=== PATIENT | female | born 1930 | race Hispanic/Latino ===

== ENCOUNTER 2017-10-26 14:59 | Inpatient (IN) | payer MEDICARE ==
[2017-10-26 15:55] LABS: Basophils % (Auto) 0.2 % (0.0-1.8); Eosinophils % (Auto) 0.1 % (0.0-4.3); Hematocrit 40.5 % (30.3-42.9); Hemoglobin 13.5 gm/dl (10.1-14.3); Lymphocytes # (Auto) 0.6 K/mm3 (1.2-5.4); Lymphocytes % (Auto) 6.7 % (13.4-35.0); Mean Corpuscular HGB Conc 33 % (30-34); Mean Corpuscular Hemoglobin 31 pg (28-32); Mean Corpuscular Volume 93 fl (79-97); Monocytes # (Auto) 0.4 K/mm3 (0.0-0.8); Monocytes % (Auto) 4.7 % (0.0-7.3); Red Blood Count 4.36 M/mm3 (3.65-5.03); Red Cell Distribution Width 14.7 % (13.2-15.2)
[2017-10-26 15:57] LABS: Platelet Count 85 K/mm3 (140-440)
[2017-10-26 16:05] LABS: INR 1.88 (0.87-1.13)
[2017-10-26 16:18] LABS: Albumin 3.8 g/dL (3.9-5); Calcium 8.9 mg/dL (8.4-10.2)
[2017-10-26 17:01] LABS: Bilirubin,Urine NEG (Negative); Blood,Urine SM (Negative); Color,Urine Straw (Yellow); Mucus,Urine FEW /HPF; Nitrite,Urine NEG (Negative); Protein,Urine <15 mg/dL mg/dL (Negative); Urobilinogen,Urine < 2.0 mg/dL (<2.0)
[2017-10-26 17:06] LABS: Amphetamine Screen,Urine PRESUMPTIVE NEGATIVE; Benzodiazepines Screen,Urine PRESUMPTIVE NEGATIVE; Cannabinoid Screen,Urine PRESUMPTIVE NEGATIVE; Cocaine Screen,Urine PRESUMPTIVE NEGATIVE; Methadone Screen,Urine PRESUMPTIVE NEGATIVE; Opiate Screen,Urine PRESUMPTIVE NEGATIVE
[2017-10-26] MEDS ORDERED: ZOFRAN IV ONE (20:39)
[2017-10-26] MEDS ORDERED: K-DUR PO ONE (20:39)
--- NOTE | 2017-10-26 20:40 | Emergency Department Report ---
ED Syncope HPI - General Chief Complaint: Syncope Stated Complaint: SYNCOPE Time Seen by Provider: 10/26/17 20:22 Source: patient - History of Present Illness Initial Comments: 86 YO FEMALE WITH 3 EPISODES OF SYNCOPE TODAY AND ONE LAST WEEK. PT WAS ALSO CONFUSED AND DISORIENTED SEVERAL TIMES TODAY. SHE HAS ALSO C/O CHEST PAIN. Timing/Prior Episodes: multiple episodes today Precipitating Factors: Positive: unknown Context: standing Loss of Consciousness: brief (seconds) Current Symptoms: back to normal - Related Data Allergies/Adverse Reactions: Allergies morphine Allergy (Verified 10/26/17 15:09) Unknown Home Medications: Ambulatory Orders AtorvaSTATin [Lipitor] 10 mg PO QHS 10/27/17 Furosemide [Lasix TAB] 40 mg PO QDAY 10/27/17 Metoprolol [Lopressor] 25 mg PO BID 10/27/17 Warfarin [Coumadin] 5 mg PO QDAY 10/27/17 ED Review of Systems ROS: Stated complaint: SYNCOPE Other details as noted in HPI Constitutional: denies: chills, fever Eyes: denies: eye pain, eye discharge, vision change ENT: denies: ear pain, throat pain Respiratory: denies: cough, shortness of breath, wheezing Cardiovascular: chest pain. denies: palpitations Endocrine: no symptoms reported Gastrointestinal: denies: abdominal pain, nausea, diarrhea Genitourinary: denies: urgency, dysuria, discharge Musculoskeletal: denies: back pain, joint swelling, arthralgia Skin: denies: rash, lesions Neurological: weakness, confusion. denies: headache, paresthesias Psychiatric: denies: anxiety, depression Hematological/Lymphatic: denies: easy bleeding, easy bruising ED Past Medical Hx - Past Medical History Previous Medical History?: Yes Hx Congestive Heart Failure: Yes Hx Dementia: Yes - Surgical History Past Surgical History?: Yes - Social History Smoking Status: Never Smoker Substance Use Type: Prescribed - Medications Home Medications: Home Medications Medication Instructions Recorded Confirmed Last Taken Type AtorvaSTATin [Lipitor] 10 mg PO QHS 10/27/17 10/27/17 Unknown History Furosemide [Lasix TAB] 40 mg PO QDAY 10/27/17 10/27/17 Unknown History Metoprolol [Lopressor] 25 mg PO BID 10/27/17 10/27/17 Unknown History Warfarin [Coumadin] 5 mg PO QDAY 10/27/17 10/27/17 Unknown History ED Physical Exam - General Limitations: Physical Limitation, Other General appearance: alert, in no apparent distress - Head Head exam: Present: atraumatic, normocephalic - Eye Eye exam: Present: normal appearance, EOMI - ENT ENT exam: Present: mucous membranes moist - Neck Neck exam: Present: normal inspection, full ROM - Respiratory Respiratory exam: Present: normal lung sounds bilaterally, decreased breath sounds. Absent: wheezes - Cardiovascular Cardiovascular Exam: Present: regular rate, irregular rhythm. Absent: systolic murmur, diastolic murmur, rubs, gallop - GI/Abdominal GI/Abdominal exam: Present: soft, normal bowel sounds. Absent: tenderness - Rectal Rectal exam: Present: deferred - Extremities Exam Extremities exam: Present: full ROM, pedal edema (4+ PITTING EDEMA) - Back Exam Back exam: Present: normal inspection - Neurological Exam Neurological exam: Present: alert, oriented X3 - Psychiatric Psychiatric exam: Present: normal affect, normal mood - Skin Skin exam: Present: warm, dry, intact, normal color. Absent: rash ED Course Vital Signs 10/26/17 10/26/17 10/26/17 15:09 19:45 20:44 Temperature 97 F L 97.3 F L Pulse Rate 73 82 Respiratory 18 20 16 Rate Blood Pressure 117/69 Blood Pressure 151/76 [Right] O2 Sat by Pulse 95 97 97 Oximetry 10/27/17 01:45 Temperature Pulse Rate 146 H Respiratory Rate Blood Pressure 148/84 Blood Pressure [Right] O2 Sat by Pulse Oximetry - Reevaluation(s) Reevaluation #1: 10/26/17 22:19 DISCUSSED FINDINGS THUS FAR WITH THE FAMILY 10/27/17 02:41 PT IS NOT HAVING A-FIB WITH RVR WILL START A DRIP ED Medical Decision Making - Lab Data Result diagrams: 10/26/17 15:28 10/26/17 15:28 - EKG Data -: EKG Interpreted by [facility] EKG shows normal: axis Rate: normal (89, A-FIB,LOW VOLTAGE INPRECORDIAL LEADS,Q IN V1-V2.LONG QT) - Radiology Data Radiology results: report reviewed (CXR: NEGATIVE CT HEAD; NO ACUTE ISCHEMIC CHANGES CTA CHEST:NEGATIVE FOR PE, NO DISSECTION, CT LOWER EXTREMITY: NEGATIVE FOR PE, LARGE EDEMA) Critical Care Time: Yes Critical care time in (mins) excluding proc time.: 60 Critical care attestation.: If time is entered above; I have spent that time in minutes in the direct care of this critically ill patient, excluding procedure time. NICOLE Critical Care Time: 60MIN ED Disposition Clinical Impression: New onset atrial fibrillation, Hypokalemia, Hyperglycemia, Syncope and collapse Acute CHF Qualifiers: Congestive heart failure type: unspecified congestive heart failure type Qualified Code(s): I50.9 - Heart failure, unspecified Chest pain Qualifiers: Chest pain type: chest pain due to myocardial ischemia Ischemic chest pain type : unspecified angina pectoris type Qualified Code(s): I20.9 - Angina pectoris, unspecified Disposition: 09 OP ADMIT IP TO THIS HOSP Is pt being admited?: Yes Does the pt Need Aspirin: No Condition: Critical Instructions: Chest Pain (ED), Syncope (ED) Referrals: JOSEFINA BROWN MD [Primary Care Provider] - 3-5 Days Time of Disposition: 02:50 (DR LOPEZ PAGED AN DCASE REVIEWED AND SHE WILL ADMT THE PT TO THE HOSPITAL)
--- NOTE | 2017-10-26 20:57 | XRay Report ---
FINAL REPORT EXAM: XR CHEST 1V AP HISTORY: sob TECHNIQUE: upright single view chest PRIORS: None. FINDINGS: Cardiac and mediastinal contours are unremarkable. No focal pulmonary infiltrate is identified. No pleural fluid collection seen. Pulmonary vasculature is unremarkable. Partially visualized is fusion hardware lower cervical spine IMPRESSION: Negative single-view chest
--- NOTE | 2017-10-26 21:45 | Cat Scan Report ---
FINAL REPORT PROCEDURE: CT HEAD/BRAIN W CON TECHNIQUE: Computerized tomography of the head was performed without contrast material. HISTORY: ams COMPARISON: No prior studies are available for comparison. FINDINGS: Skull and scalp: Normal. Paranasal sinuses: Normal. Ventricles and subarachnoid spaces: There is moderate central and cortical atrophy. There is no hydrocephalus or asymmetry.. Cerebrum: No evidence of hemorrhage, acute infarction or mass. There is chronic periventricular deep white matter ischemic gliosis. There are physiologic calcifications in the basal ganglia. Cerebellum and brainstem: No evidence of hemorrhage, acute infarction or mass. Vasculature: There is calcified plaque in the cavernous portions of the internal carotid arteries.. Comments: None. IMPRESSION: There are chronic involutional and ischemic changes. There is no hemorrhage, edema, mass, mass effect or midline shift.
--- NOTE | 2017-10-27 01:31 | Cat Scan Report ---
FINAL REPORT PROCEDURE: CT ANGIO CHEST TECHNIQUE: Computerized tomographic angiography of the chest was performed after the IV injection of iodinated nonionic contrast including image processing. The image data was postprocessed using 2-dimensional multiplanar reformatted (MPR) and 3-dimensional (MIP and/or volume rendered) techniques. HISTORY: SYNCOPE,CHEST PAIN,DDIMER > 10,000 COMPARISON: No prior studies are available for comparison. FINDINGS: Heart and pericardium: The heart is enlarged. There is no pericardial effusion.. Thoracic aorta: There is calcified plaque in the thoracic aorta. There is no aneurysm or dissection.. Pulmonary vasculature: There is no pulmonary embolism.. Lymph nodes: No enlarged thoracic lymph nodes. Lungs: The lungs are clear. There are no infiltrates, effusions or pneumothoraces.. Pleural space: No effusion, thickening, or pneumothorax. Musculoskeletal structures: No significant abnormality. Upper abdominal structures: Images of the upper abdomen demonstrate evidence of a cholecystectomy.. IMPRESSION: There is no pulmonary embolism. There is no thoracic aortic aneurysm or dissection.
[2017-10-27] MEDS ORDERED: NORMODYNE IV ONE (01:37)
--- NOTE | 2017-10-27 02:25 | Cat Scan Report ---
FINAL REPORT PROCEDURE: CT LOWER EXTREMITY LT W CON TECHNIQUE: Computerized axial tomographic angiography of the aortoiliac system with bilateral lower extremity runoff was performed after the IV injection of nonionic iodinated contrast including image processing. The image data was postprocessed using 2-dimensional multiplanar reformatted (MPR) and 3-dimensional (MIP and/or volume rendered) techniques. HISTORY: SYNCOPE,CHEST PAIN,DDIMER > 10,000 COMPARISON: No prior studies are available for comparison. FINDINGS: Abdominal aorta: Normal. Celiac artery: Normal. Superior mesenteric artery: Normal. LEFT renal artery: Normal. RIGHT renal artery: Normal. Inferior mesenteric artery: Normal. Common iliac arteries: Normal. External iliac arteries: Normal. RIGHT lower extremity: Femoral arteries: Normal. Popliteal arteries: Normal. Trifurcation vessels: Normal. LEFT lower extremity: Femoral arteries: Normal. Popliteal arteries: Normal. Trifurcation vessels: Normal. Abdominal and pelvic viscera: Normal. Other: There is subcutaneous edema and swelling of the lower extremities. There is no mass, abscess, hematoma, subcutaneous air or foreign body. There is hardware transfixing old fracture of the left hip. IMPRESSION: There is subcutaneous edema and swelling of the lower extremities. There is no mass, abscess, hematoma, subcutaneous air or foreign body. There is no acute bony abnormality. There is no arterial stenosis, thrombosis, or dissection.
[2017-10-27] MEDS ORDERED: CARDIZEM/D5W 100MG/100ML 100 MG/100 ML BAG IV SCH ×2 (03:00→05:00)
[2017-10-27] MEDS ORDERED: TYLENOL PO PRN (03:31)
[2017-10-27] MEDS ORDERED: MILK OF MAGNESIA PO PRN (03:31)
[2017-10-27] MEDS ORDERED: DULCOLAX PR PRN (03:31)
[2017-10-27] MEDS ORDERED: ZOFRAN IV PRN (03:31)
--- NOTE | 2017-10-27 03:36 | History and Physical Report ---
History of Present Illness Date of examination: 10/27/17 History of present illness: 87 year old man with history of afib, CHF, dementia comes to the emergency room with complaints of almost passing out per family. She had a total of 3 episodes yesterday, he also stated that she felt dizzy and disoriented. Patient is unable to give a history, review of system unobtainable PAST MEDICAL HISTORY:afib, CHF, dementia PAST SURGICAL HISTORY: Hip surgery, neck, eye implant FAMILY HISTORY:Hypertension SOCIAL HISTORY:Denies alcohol, tobacco, drugs Medications and Allergies Allergies Allergy/AdvReac Type Severity Reaction Status Date / Time morphine Allergy Unknown Verified 10/26/17 15:09 Home Medications Medication Instructions Recorded Confirmed Last Taken Type AtorvaSTATin [Lipitor] 10 mg PO QHS 10/27/17 10/27/17 Unknown History Furosemide [Lasix TAB] 40 mg PO QDAY 10/27/17 10/27/17 Unknown History Metoprolol [Lopressor TAB] 25 mg PO BID 10/27/17 10/27/17 Unknown History Warfarin [Coumadin] 5 mg PO QDAY 10/27/17 10/27/17 Unknown History Arformoterol Nebu [Brovana Nebu] 15 mcg IH Q12HRT ml 10/30/17 Unknown Rx Budesonide [Pulmicort Respules] 0.5 mg IH Q12HRT nebu 10/30/17 Unknown Rx Famotidine [Pepcid] 20 mg PO QDAY tablet 10/30/17 Unknown Rx Levofloxacin [Levaquin] 250 mg PO QDAY 5 Days tablet 10/30/17 Unknown Rx Metoprolol [Lopressor TAB] 25 mg PO BID tablet 10/30/17 Unknown Rx Active Meds: Active Medications Diltiazem HCl (Cardizem/D5w 100mg/100ml) 100 mg in 100 mls @ 5 mls/hr IV TITR MARK; 5 MG/HR PRN Reason: Protocol Exam - Physical Exam Narrative exam: Gen. appearance: Patient lying in bed in no acute distress HEENT: Normocephalic/atraumatic, pupils equal round reactive to light, extra occular movement intact, no scleral icterus, no JVD or thyromegaly or nodule, neck is supple, mucous membrane moist, no erythema or exudate Heart: S1-S2, irregular rate and rhythm Lungs: Clear to auscultation bilateral breathing comfortable Abdomen: Positive bowel sounds, nontender, nondistended, no organomegaly Extremities: No edema, cyanosis, clubbing Neuro:: cranial nerves II-12 intact, speech, motor intact Skin: No rash, nodules, warm dry - Constitutional Vitals: Temp Pulse Resp BP Pulse Ox 97.3 F L 146 H 16 148/84 97 10/26/17 19:45 10/27/17 01:45 10/26/17 20:44 10/27/17 01:45 10/26/17 20:44 Results - Labs CBC & Chem 7: 10/28/17 05:31 10/28/17 05:31 Labs: Abnormal lab results 10/26/17 10/26/17 10/26/17 Range/Units 15:28 15:28 15:37 Plt Count 85 L (140-440) K/mm3 Lymph % (Auto) 6.7 L (13.4-35.0) % Lymph # 0.6 L (1.2-5.4) K/mm3 Seg Neutrophils % 88.3 H (40.0-70.0) % Seg Neutrophils # 8.1 H (1.8-7.7) K/mm3 PT 22.7 H (12.2-14.9) Sec. INR 1.88 H (0.87-1.13) APTT 41.0 H (24.2-36.6) Sec. D-Dimer (0-234) ng/mlDDU Potassium 3.3 L (3.6-5.0) mmol/L Glucose 202 H (65-100) mg/dL Total Bilirubin 1.30 H (0.1-1.2) mg/dL NT-Pro-B Natriuret Pep (0-900) pg/mL Albumin 3.8 L (3.9-5) g/dL 10/26/17 10/26/17 Range/Units 15:37 15:37 Plt Count (140-440) K/mm3 Lymph % (Auto) (13.4-35.0) % Lymph # (1.2-5.4) K/mm3 Seg Neutrophils % (40.0-70.0) % Seg Neutrophils # (1.8-7.7) K/mm3 PT (12.2-14.9) Sec. INR (0.87-1.13) APTT (24.2-36.6) Sec. D-Dimer > 57596 H (0-234) ng/mlDDU Potassium (3.6-5.0) mmol/L Glucose (65-100) mg/dL Total Bilirubin (0.1-1.2) mg/dL NT-Pro-B Natriuret Pep 4013 H (0-900) pg/mL Albumin (3.9-5) g/dL - Imaging and Cardiology EKG: image reviewed Chest x-ray: image reviewed CT scan - chest: report reviewed CT Scan - head: report reviewed Assessment and Plan CT lower extremity negative Assessment A. fib with RVR Near-syncope CHF, stable Dementia Plan Admit to medicine Continue Cardizem drip, check cardiac enzymes, consult cardiology, critical care Continue appropriate outpatient medications DVT prophylaxis
[2017-10-27 06:58] LABS: Creatine Kinase MB 2.4 ng/mL (0.0-4.0)
[2017-10-27 07:12] LABS: Chol/HDL Ratio 2.1 %
[2017-10-27 10:09] LABS: Creatine Kinase MB 2.1 ng/mL (0.0-4.0)
[2017-10-27 10:32] LABS: Calcium 8.6 mg/dL (8.4-10.2); Magnesium 1.9 mg/dL (1.7-2.3)
[2017-10-27] MEDS ORDERED: LASIX ONE (11:51)
[2017-10-27] MEDS: LASIX PO SCH (11:59)
--- NOTE | 2017-10-27 14:01 | Consultation ---
History of Present Illness Consult date: 10/27/17 Requesting physician: FEI LOPEZ Reason for consult: other (Atrial Fibrillation with RVR) History of present illness: PULMONARY/CCM CONSULT NOTE (Full dictation # [id number]) Please see dictated notes for full details Medications and Allergies Allergies Allergy/AdvReac Type Severity Reaction Status Date / Time morphine Allergy Unknown Verified 10/26/17 15:09 Home Medications Medication Instructions Recorded Confirmed Last Taken Type AtorvaSTATin [Lipitor] 10 mg PO QHS 10/27/17 10/27/17 Unknown History Furosemide [Lasix TAB] 40 mg PO QDAY 10/27/17 10/27/17 Unknown History Metoprolol [Lopressor] 25 mg PO BID 10/27/17 10/27/17 Unknown History Warfarin [Coumadin] 5 mg PO QDAY 10/27/17 10/27/17 Unknown History Active Meds: Active Medications Acetaminophen (Tylenol) 650 mg PO Q4H PRN PRN Reason: Pain MILD(1-3)/Fever >100.5/CHAN Atorvastatin Calcium (Lipitor) 10 mg PO QHS MARK Bisacodyl (Dulcolax) 10 mg WI QDAY PRN PRN Reason: Constipation unrelieved by MOM Furosemide (Lasix) 40 mg PO QDAY MARK Last Admin: 10/27/17 11:59 Dose: 40 mg Diltiazem HCl (Cardizem/D5w 100mg/100ml) 100 mg in 100 mls @ 5 mls/hr IV TITR MARK; 5 MG/HR PRN Reason: Protocol Last Titration: 10/27/17 07:27 Dose: 0 mg/hr, 0 mls/hr Magnesium Hydroxide (Milk Of Magnesia) 30 ml PO Q4H PRN PRN Reason: Constipation Ondansetron HCl (Zofran) 4 mg IV Q8H PRN PRN Reason: N/V unrelieved by Reglan Warfarin Sodium (Coumadin) 5 mg PO QDAY@1700 MARK PRN Reason: Protocol Physical Examination Vital signs: Vital Signs Temp Pulse Resp BP Pulse Ox 97 F L 73 18 117/69 95 10/26/17 15:09 10/26/17 15:09 10/26/17 15:09 10/26/17 15:09 10/26/17 15:09 Results - Laboratory Findings CBC and BMP: 10/26/17 15:28 10/27/17 09:30 PT/INR, D-dimer PT 22.7 Sec. (12.2-14.9) H 10/26/17 15:37 INR 1.88 (0.87-1.13) H 10/26/17 15:37 D-Dimer > 19597 ng/mlDDU (0-234) H 10/26/17 15:37 Abnormal lab findings: Abnormal Labs 10/26/17 10/26/17 10/26/17 15:28 15:28 15:37 Plt Count 85 L Lymph % (Auto) 6.7 L Lymph # 0.6 L Seg Neutrophils % 88.3 H Seg Neutrophils # 8.1 H PT 22.7 H INR 1.88 H APTT 41.0 H D-Dimer Sodium Potassium 3.3 L Creatinine Glucose 202 H Total Bilirubin 1.30 H Troponin T NT-Pro-B Natriuret Pep Albumin 3.8 L LDL Cholesterol Direct 10/26/17 10/26/17 10/27/17 15:37 15:37 06:14 Plt Count Lymph % (Auto) Lymph # Seg Neutrophils % Seg Neutrophils # PT INR APTT D-Dimer > 53030 H Sodium Potassium Creatinine Glucose Total Bilirubin Troponin T 0.040 H NT-Pro-B Natriuret Pep 4013 H Albumin LDL Cholesterol Direct 47 L 10/27/17 10/27/17 09:30 09:30 Plt Count Lymph % (Auto) Lymph # Seg Neutrophils % Seg Neutrophils # PT INR APTT D-Dimer Sodium 146 H Potassium Creatinine 1.3 H Glucose 137 H Total Bilirubin Troponin T 0.041 H NT-Pro-B Natriuret Pep Albumin LDL Cholesterol Direct
--- NOTE | 2017-10-27 18:09 | Event Note ---
Date: 10/27/17 87-year-old female was admitted for syncope, patient had A. fib with RVR and she is on Cardizem drip and pending ICU admission. Patient evaluated by cardiology and telesales specialist. Management per H&P.
[2017-10-27] MEDS: PEPCID PO SCH (19:29)
[2017-10-27] MEDS: COUMADIN PO SCH (20:06)
[2017-10-27] MEDS: BROVANA NEBU IH SCH (22:16)
[2017-10-27] MEDS: PULMICORT IH SCH (22:16)
--- NOTE | 2017-10-28 00:07 | Consultation ---
CARDIOLOGY EVALUATION HISTORY OF PRESENT ILLNESS: This is an 87-year-old female, who comes to the Emergency Room with a history of recurrent syncope and palpitations. She had 2 episodes yesterday had another episode about a week or 10 days ago. This happened suddenly and when she came in, she was somewhat confused. The patient is known to have dementia. She is known to have chronic atrial fibrillation and when she came in, she was noted to have atrial fibrillation with rapid ventricular response and she has been treated with IV Cardizem drip and currently, the rate is well controlled at about 80 beats per minute. The patient has no chest pain. No significant difficulty in breathing. There is questionable history of congestive heart failure as well as hyperlipidemia in the past. The patient is followed by Dr. Arizmendi in the office. We will review the office records. Currently, she denies chest pain. No significant difficulty in breathing, no dizziness even though she had dizziness earlier. The episodes of loss of consciousness is very brief, lasting only a few seconds, no associated with loss of bladder or bowel control or seizure activity. The patient has been on anticoagulants for atrial fibrillation. The patient had a CT scan done in the Emergency Room and this did not show any acute abnormalities. As D-dimer was markedly elevated, the patient also had a CTA of the chest and this was negative for dissection, aneurysm and pulmonary embolism. Chest x-ray did not show any acute abnormalities. EKG showed atrial fibrillation. The current rhythm strip shows atrial fibrillation at a rate of about 80 beats per minute. REVIEW OF SYSTEMS: HEAD, EYES, EARS, NOSE AND THROAT: No symptoms. ENDOCRINE: No history of diabetes or thyroid problems. GASTROINTESTINAL: No abdominal pain, nausea, or vomiting. Bowel habits have been regular. GENITOURINARY: No symptoms. CENTRAL NERVOUS SYSTEM: As mentioned earlier, history of loss of consciousness, dizziness and dementia. GENITOURINARY: No symptoms. MUSCULOSKELETAL: Known to have had joint problems and had previous hip surgery. PSYCHIATRIC: No symptoms. HEMATOLOGY/ONCOLOGY: No symptoms. PERSONAL HISTORY: Nonsmoker, nonalcoholic. PAST SURGICAL HISTORY: The patient had hip surgery, neck and eye surgeries. FAMILY HISTORY: Positive for hypertension. DRUG ALLERGIES: MORPHINE. PHYSICAL EXAMINATION: GENERAL: Elderly female, in no acute distress at this time. VITAL SIGNS: Blood pressure 125/65, pulse 90, respirations 18. HEENT: Unremarkable. NECK: Supple. No thyromegaly. Both carotids are palpable and equal. Neck veins are flat. CHEST: Symmetrical. LUNGS: Essentially clear. HEART: S1 and S2 are heard well. Rhythm is noted to be irregular. ABDOMEN: Soft, nontender. No hepatosplenomegaly. EXTREMITIES: No calf tenderness, minimal edema is present. LABORATORY DATA: EKG, atrial fibrillation, low QRS amplitude. WBC 9.1, hemoglobin 13.5, and hematocrit 40.5. INR 1.88. Potassium initially was 3.3. Repeat potassium is 3.9. BUN 16, creatinine 1.3. Troponin 0.040 and 0.041. BNP 4013. D-dimer greater than 10,000. IMPRESSION: 1. Atrial fibrillation with rapid ventricular response, rate controlled at this time with Cardizem and the patient is already on Coumadin, known to have chronic atrial fibrillation. 2. History of transient syncope, etiology uncertain. 3. History of dementia. 4. Hyperlipidemia. The patient is seen for cardiac evaluation. Clinically, cardiac status appears to be satisfactory. We will review office records and monitor her closely along with you. Thank you for allowing me to participate in the care of this pleasant lady. Problems discussed with multiple family members. JOB# [id number] DEBRA/NTS
--- NOTE | 2017-10-28 03:25 | Consultation ---
PULMONARY CRITICAL CARE CONSULTATION CONSULTING PHYSICIAN: Dr. Copeland. REASON FOR CONSULTATION: Atrial fibrillation with rapid ventricular response, need for ICU admission for Cardizem drip administration. CHIEF COMPLAINT AND HISTORY OF PRESENT ILLNESS: The patient is an 87-year-old female with past medical history significant for diagnosis of atrial fibrillation who according to the family has in the past day or two had near syncopal events, but did not really complain about anything. In the past, she has had atrial fibrillation with palpitations and has complained about that, but not this time. Earlier today, I believe they were in [place] when she stumbled a couple of times; they were unable to get much of the history from her. Emergency medical service has apparently came by and found her to be with an irregular heart rate. They decided to bring her into the Emergency Room. Evaluation in the Emergency Room revealed atrial fibrillation with rapid ventricular response, believed responsible for the near syncopal events. She was started on a Cardizem drip, and we are asked to assist in evaluation. When I stopped by to see her, she was resting in bed, head of the bed was elevated. She also has a history of congestive heart failure. She has an element of dementia. Her daughter was in the room with her. She denied any acute pain, but her daughter says again, she is very forgetful these days. She has never smoking history. They denied any vomiting. She denies any nausea. They denied any recent upper respiratory tract type symptoms. No fevers at home. No sneezing at home. No sick contacts. She has been taking her medications. This is as much of the history of presentation as I have. PAST MEDICAL HISTORY: Atrial fibrillation, congestive heart failure, dementia. PAST SURGICAL HISTORY: She has had hip surgery. She has had surgery to her neck and she has had an eye implant. MEDICATIONS: She was on at the time I stopped by to see were reviewed; pertinent medications included Lipitor 10 mg p.o. at bedtime, Cardizem drip at 5 mg an hour, Lasix 40 mg p.o. daily, milk of magnesia p.r.n., Zofran 4 mg IV q. 8 hours and Coumadin 5 mg p.o. daily. ALLERGIES: MORPHINE, NATURE OF THIS ALLERGY IS UNKNOWN. DIET: Well-built, slightly obese. Family denies acute weight loss or gain in the preceding few weeks to months. FAMILY AND SOCIAL HISTORY: She lives in the community. I believe she lives with her daughter. Good family support. No history of alcohol, tobacco, or illicit drug use or abuse. Family history, otherwise significant for high blood pressure. REVIEW OF SYSTEMS: Difficult to obtain secondary to her dementia; however, since she has been here, no gross hematochezia or melena, no gross hematuria, no hematemesis, no hemoptysis. She denies palpitations. She denies chest pain. Complete 13-system review of systems obtained. Pertinent positives and/or negatives as in body of the history above, otherwise unobtainable. PHYSICAL EXAMINATION: VITAL SIGNS: At presentation in the Emergency Room, she was afebrile, temperature was 97 degrees Fahrenheit and initial pulse was 73 with a respiratory rate of 18, blood pressure 117/69, oxygen sats 95%. She was on 3 liters nasal cannula at the time I saw her. She then went into I believe atrial fibrillation at 146 beats per minute. GENERAL: She is an elderly looking female, looks her stated age, normocephalic, atraumatic, talking to me in full sentences at best in mild respiratory distress. HEAD, EYES, EARS, NOSE AND THROAT: She is anicteric, no conjunctival erythema. No gross jugular venous distention, no thyromegaly. Oropharynx is moist, it is a Mallampati #2 oropharynx. Grossly, no palpable lymph nodes in the supraclavicular or submandibular lymph node chains. LUNGS: Auscultation of both lung duenas significant for diminished bilateral breath sounds; expiratory wheeze, in particularly, in the right lower lobe region. Clear otherwise. HEART: Heart sounds 1 and 2 are heard. Irregularly irregular at the time of my evaluation. No rubs and no murmurs. ABDOMEN: Soft, full, bowel sounds are positive, nontender. EXTREMITIES: Without overt digital clubbing or cyanosis. She had trace to 1+ bipedal pitting edema. Dorsalis pedis pulses were palpable bilaterally. NEUROLOGIC: Pupils were equal, round and reactive to light. Extraocular muscle movements appeared intact. She had spontaneous movements to all 4 extremities and followed commands appropriately. Mood appeared appropriate. Affect was normal. LABORATORY DATA: From my review are as follows: Admission white cell count 9100 with a hemoglobin of 13.5, hematocrit of 40.5, platelet count of 85. INR was 1.88. D-dimer was significantly elevated. Serum sodium was 140, potassium 3.3, chloride was 100, bicarbonate 28, BUN 17, creatinine 1.1, glucose 202. Total bilirubin slightly elevated at 1.3. Otherwise, liver function tests within normal limits. BNP was elevated at 4013. Urinalysis negative for nitrites and leukocyte esterase, essentially negative urinalysis: Urine drug screen was negative. Blood alcohol level was nondetectable. LDL cholesterol 47. No microbiology studies for my review. IMAGING STUDIES: A chest x-ray was done and I have reviewed the chest x-ray. I have also reviewed the radiologist's interpretation. I do feel this is certainly not a negative x-ray, there is borderline cardiomegaly and there is evidence of hyperinflation. I think an element of COPD; however, I can also see implanted plates, perhaps in the neck vertebra. No gross pneumothorax, no gross bony fracture. A CT angio of the chest was done. I have reviewed that CT angio and I do see mild and almost crazy-paving pattern to the CT. I do not think this is ground-glass opacification secondary to fluid. I think rather this is air trapping that is obvious on the CT scan. Patchy areas of air trapping. I do not see an obvious pericardial effusion. I should mention that the 12-lead EKG is a low-voltage EKG, but again, I do not see any effusion on this particular film and there may be some relation to COPD. ASSESSMENT AND PLAN: 1. Acute on chronic hypoxemic respiratory failure. She apparently is on home oxygen. 2. Atrial fibrillation with rapid ventricular response. 3. Near syncopal episodes. 4. History of congestive heart failure without overt exacerbation. 5. History of dementia. 6. Obesity. 7. Coagulopathy secondary to Coumadin use. PLAN: We will continue Cardizem drip and titrate it to keep the pulse certainly less than or equal to about 100. I will introduce oral medications. Oxygen will be weaned to keep sats greater than or equal to about 90% to 92%. Aspiration precautions will be maintained. We shall be careful not to precipitate intravascular volume depletion. We will continue current oral diuretics while watching electrolytes closely and watching her clinically. Cardiology evaluation will be at the behest of the attending physician. I will put her on long-acting bronchodilators in the form of Brovana as well as inhaled corticosteroids for COPD. I am torn at this point, I will probably do a quick steroid taper as I do feel again that there is COPD at play and her near syncopal episodes may well have been related to hypoxemia as I really do not see a rapid ventricular response. Her EKG here shows a rate of about 89 beats per hour, in the room, she is going occasionally into the low 100s though. She will be continued on her Coumadin. I do not see the need for further testing. We should just try and get her INR in the therapeutic range. Consideration should be given for her home status, and the fall risk, that should be addressed at the time of discharge. She will also be started on GI prophylaxis, especially with her being on full anticoagulation. Flu and pneumonia vaccination will be per protocol. We will follow her off antibiotics. Thank you very much for the consult. We will follow along. We will make further recommendations as picture progresses/becomes clearer. She can certainly be admitted to the Intensive Care Unit as long as she stays on the IV Cardizem drip and until cleared for transfer to telemetry by Cardiology. We will follow along, we will make further recommendations as picture progresses/becomes clearer. JOB# [id number] GROVER/NALINI
[2017-10-28 06:16] LABS: Hematocrit 38.6 % (30.3-42.9); Mean Corpuscular HGB Conc 34 % (30-34); Mean Corpuscular Hemoglobin 31 pg (28-32); Mean Corpuscular Volume 93 fl (79-97); Red Blood Count 4.14 M/mm3 (3.65-5.03)
[2017-10-28 06:27] LABS: INR 1.79 (0.87-1.13); Platelet Count 61 K/mm3 (140-440)
[2017-10-28 06:37] LABS: Calcium 8.8 mg/dL (8.4-10.2)
[2017-10-28] MEDS: PULMICORT IH SCH ×2 (07:17→21:18)
[2017-10-28] MEDS: BROVANA NEBU IH SCH ×2 (07:17→21:17)
[2017-10-28 08:05] LABS: Band Neutrophils # (Manual) 0.6 K/mm3; Basophils % (Manual) 0 % (0.0-1.8); Eosinophils % (Manual) 0 % (0.0-4.3); Ovalocytes Few; Platelet Estimate Consistent w Auto; Total Cells Counted 100
[2017-10-28] MEDS: LASIX PO SCH (09:38)
[2017-10-28] MEDS: PEPCID PO SCH (09:38)
--- NOTE | 2017-10-28 13:51 | Progress Note ---
Assessment and Plan Assessment: Syncope/near syncope Atrial fibrillation with RVR-->currently CVR Hypertension-->BP currently low normal Hyperlipidemia Plan: Recent echo showed EF 50-55%, moderate to severe TR. Will continue to observe on the monitor. If inpatient telemetry monitoring is non-revealing, may consider a 30 day monitor as an outpatient and possible EP evaluation. The patient has been seen in conjunction with Dr. Arizmendi who agrees with the assessment and plan of care. Subjective Date of service: 10/28/17 Principal diagnosis: syncope Interval history: The patient is resting in bed. No new complaints. Daughter at bedside. Atrial fibrillation with CVR on the monitor. Objective Last Vital Signs Temp 97.4 F L 10/28/17 05:20 Pulse 95 H 10/28/17 07:25 Resp 18 10/28/17 08:00 BP 100/65 10/28/17 05:20 Pulse Ox 94 10/28/17 07:20 - Physical Examination General: No Apparent Distress Neck: Positive: neck supple, trachea midline Cardiac: Positive: irregularly irregular, S1/S2 Lungs: Positive: clear to auscultation Neuro: Positive: Grossly Intact Abdomen: Positive: Soft, Active Bowel Sounds. Negative: Tender Skin: Positive: Clear. Negative: Rash Extremities: Present: normal. Absent: edema - Labs and Meds Coagulation 10/28/17 Range/Units 05:31 PT 21.8 H (12.2-14.9) Sec. INR 1.79 H (0.87-1.13) CBC 10/28/17 Range/Units 05:31 WBC 7.0 (4.5-11.0) K/mm3 RBC 4.14 (3.65-5.03) M/mm3 Hgb 13.0 (10.1-14.3) gm/dl Hct 38.6 (30.3-42.9) % Plt Count 61 L (140-440) K/mm3 Comprehensive Metabolic Panel 10/28/17 Range/Units 05:31 Sodium 136 L D (137-145) mmol/L Potassium 3.7 (3.6-5.0) mmol/L Chloride 96.1 L (98-107) mmol/L Carbon Dioxide 25 (22-30) mmol/L BUN 18 H (7-17) mg/dL Creatinine 1.2 (0.7-1.2) mg/dL Glucose 218 H (65-100) mg/dL Calcium 8.8 (8.4-10.2) mg/dL - Imaging and Cardiology EKG: image reviewed Echo: report reviewed (10/22/17: EF 50-55%, moderate to severe TR) - Telemetry EKG Rhythm: Atrial Fibrillation
[2017-10-28] MEDS: COUMADIN PO SCH (17:03)
--- NOTE | 2017-10-28 18:57 | Progress Note ---
Assessment and Plan Assessment and plan: 87-year-old female with medical history significant for A. fib on anticoagulation was admitted after the patient was passed out Syncope, autonomic dysfunction - Likely due to A. fib - Physical therapy consulted A.fib with RVR - Patient was initially managed with Cardizem drip and currently controlled with metoprolol - We will monitor - Cardiology consult appreciated - INR is 1.79 Will adjust warfarin as needed Disposition - Continue inpatient care. History Interval history: Patient was seen and evaluated this morning, patient was resting comfortably, no new complaints. Hospitalist Physical - Physical exam Narrative exam: Not in cardiopulmonary distress. The patient appeared friable. Vital signs as documented. Head exam is unremarkable. No scleral icterus . Neck is without jugular venous distension, thyromegaly, or carotid bruits. Lungs are clear to auscultation. Cardiac exam reveals irregular rate and Rhythm. Abdominal exam reveals normal bowel sounds, no masses, no organomegaly and no aortic enlargement. Extremities are nonedematous and both femoral and pedal pulses are normal. ACCOUNTING REPRESENTATIVE: Alert and oriented 3. No focal weakness. - Constitutional Vitals: Temp Pulse Resp BP Pulse Ox 97.4 F L 95 H 18 100/65 94 10/28/17 05:20 10/28/17 07:25 10/28/17 08:00 10/28/17 05:20 10/28/17 07:20 Results - Labs CBC & Chem 7: 10/28/17 05:31 10/28/17 05:31 Labs: Laboratory Last Values WBC 7.0 K/mm3 (4.5-11.0) 10/28/17 05:31 RBC 4.14 M/mm3 (3.65-5.03) 10/28/17 05:31 Hgb 13.0 gm/dl (10.1-14.3) 10/28/17 05:31 Hct 38.6 % (30.3-42.9) 10/28/17 05:31 MCV 93 fl (79-97) 10/28/17 05:31 MCH 31 pg (28-32) 10/28/17 05:31 MCHC 34 % (30-34) 10/28/17 05:31 RDW 15.0 % (13.2-15.2) 10/28/17 05:31 Plt Count 61 K/mm3 (140-440) L 10/28/17 05:31 Lymph % (Auto) 6.7 % (13.4-35.0) L 10/26/17 15:28 [place] % (Auto) 4.7 % (0.0-7.3) 10/26/17 15:28 Eos % (Auto) 0.1 % (0.0-4.3) 10/26/17 15:28 Baso % (Auto) 0.2 % (0.0-1.8) 10/26/17 15:28 Lymph # 0.6 K/mm3 (1.2-5.4) L 10/26/17 15:28 [place] # 0.4 K/mm3 (0.0-0.8) 10/26/17 15:28 Eos # 0.0 K/mm3 (0.0-0.4) 10/26/17 15:28 Baso # 0.0 K/mm3 (0.0-0.1) 10/26/17 15:28 Add Manual Diff Complete 10/28/17 05:31 Total Counted 100 10/28/17 05:31 Seg Neutrophils % Investigative Writer 10/28/17 05:31 Seg Neuts % (Manual) 81.0 % (40.0-70.0) H 10/28/17 05:31 Band Neutrophils % 9.0 % 10/28/17 05:31 Lymphocytes % (Manual) 9.0 % (13.4-35.0) L 10/28/17 05:31 Reactive Lymphs % (Man) 0 % 10/28/17 05:31 Monocytes % (Manual) 1.0 % (0.0-7.3) 10/28/17 05:31 Eosinophils % (Manual) 0 % (0.0-4.3) 10/28/17 05:31 Basophils % (Manual) 0 % (0.0-1.8) 10/28/17 05:31 Metamyelocytes % 0 % 10/28/17 05:31 Myelocytes % 0 % 10/28/17 05:31 Promyelocytes % 0 % 10/28/17 05:31 Blast Cells % 0 % 10/28/17 05:31 Nucleated RBC % Not Reportable 10/28/17 05:31 Seg Neutrophils # 8.1 K/mm3 (1.8-7.7) H 10/26/17 15:28 Seg Neutrophils # Man 5.7 K/mm3 (1.8-7.7) 10/28/17 05:31 Band Neutrophils # 0.6 K/mm3 10/28/17 05:31 Lymphocytes # (Manual) 0.6 K/mm3 (1.2-5.4) L 10/28/17 05:31 Abs React Lymphs (Man) 0.0 K/mm3 10/28/17 05:31 Monocytes # (Manual) 0.1 K/mm3 (0.0-0.8) 10/28/17 05:31 Eosinophils # (Manual) 0.0 K/mm3 (0.0-0.4) 10/28/17 05:31 Basophils # (Manual) 0.0 K/mm3 (0.0-0.1) 10/28/17 05:31 Metamyelocytes # 0.0 K/mm3 10/28/17 05:31 Myelocytes # 0.0 K/mm3 10/28/17 05:31 Promyelocytes # 0.0 K/mm3 10/28/17 05:31 Blast Cells # 0.0 K/mm3 10/28/17 05:31 WBC Morphology Not Reportable 10/28/17 05:31 Hypersegmented Neuts Not Reportable 10/28/17 05:31 Hyposegmented Neuts Not Reportable 10/28/17 05:31 Hypogranular Neuts Not Reportable 10/28/17 05:31 Smudge Cells Not Reportable 10/28/17 05:31 Toxic Granulation Not Reportable 10/28/17 05:31 Toxic Vacuolation Not Reportable 10/28/17 05:31 Dohle Bodies Not Reportable 10/28/17 05:31 Pelger-Huet Anomaly Not Reportable 10/28/17 05:31 Omid Rods Not Reportable 10/28/17 05:31 Platelet Estimate Consistent w auto 10/28/17 05:31 Clumped Platelets Not Reportable 10/28/17 05:31 Plt Clumps, EDTA Not Reportable 10/28/17 05:31 Large Platelets Not Reportable 10/28/17 05:31 Giant Platelets Not Reportable 10/28/17 05:31 Platelet Satelliting Not Reportable 10/28/17 05:31 Plt Morphology Comment Not Reportable 10/28/17 05:31 RBC Morphology Not Reportable 10/28/17 05:31 Dimorphic RBCs Not Reportable 10/28/17 05:31 Polychromasia Not Reportable 10/28/17 05:31 Hypochromasia Not Reportable 10/28/17 05:31 Poikilocytosis Not Reportable 10/28/17 05:31 Anisocytosis Not Reportable 10/28/17 05:31 Microcytosis Not Reportable 10/28/17 05:31 Macrocytosis Not Reportable 10/28/17 05:31 Spherocytes Not Reportable 10/28/17 05:31 Pappenheimer Bodies Not Reportable 10/28/17 05:31 Sickle Cells Not Reportable 10/28/17 05:31 Target Cells Not Reportable 10/28/17 05:31 Tear Drop Cells Not Reportable 10/28/17 05:31 Ovalocytes Few 10/28/17 05:31 Helmet Cells Not Reportable 10/28/17 05:31 [place] Bodies Not Reportable 10/28/17 05:31 [place] Rings Not Reportable 10/28/17 05:31 [place] Cells Not Reportable 10/28/17 05:31 Bite Cells Not Reportable 10/28/17 05:31 Crenated Cell Not Reportable 10/28/17 05:31 Elliptocytes Not Reportable 10/28/17 05:31 Acanthocytes (Spur) Not Reportable 10/28/17 05:31 Rouleaux Not Reportable 10/28/17 05:31 Hemoglobin C Crystals Not Reportable 10/28/17 05:31 Schistocytes Not Reportable 10/28/17 05:31 Malaria parasites Not Reportable 10/28/17 05:31 Naveed Bodies Not Reportable 10/28/17 05:31 Hem Pathologist Commnt No 10/28/17 05:31 PT 21.8 Sec. (12.2-14.9) H 10/28/17 05:31 INR 1.79 (0.87-1.13) H 10/28/17 05:31 APTT 41.0 Sec. (24.2-36.6) H 10/26/17 15:37 D-Dimer > 95811 ng/mlDDU (0-234) H 10/26/17 15:37 Sodium 136 mmol/L (137-145) L D 10/28/17 05:31 Potassium 3.7 mmol/L (3.6-5.0) 10/28/17 05:31 Chloride 96.1 mmol/L (98-107) L 10/28/17 05:31 Carbon Dioxide 25 mmol/L (22-30) 10/28/17 05:31 Anion Gap 19 mmol/L 10/28/17 05:31 BUN 18 mg/dL (7-17) H 10/28/17 05:31 Creatinine 1.2 mg/dL (0.7-1.2) 10/28/17 05:31 Estimated GFR 43 ml/min 10/28/17 05:31 BUN/Creatinine Ratio 15 % 10/28/17 05:31 Glucose 218 mg/dL (65-100) H 10/28/17 05:31 Calcium 8.8 mg/dL (8.4-10.2) 10/28/17 05:31 Magnesium 1.90 mg/dL (1.7-2.3) 10/27/17 09:30 Total Bilirubin 1.30 mg/dL (0.1-1.2) H 10/26/17 15:28 AST 33 units/L (5-40) 10/26/17 15:28 ALT 24 units/L (7-56) 10/26/17 15:28 Alkaline Phosphatase 69 units/L (35-129) 10/26/17 15:28 Total Creatine Kinase 72 units/L (30-135) 10/27/17 09:30 CK-MB (CK-2) 2.1 ng/mL (0.0-4.0) 10/27/17 09:30 CK-MB (CK-2) Rel Index 2.9 (0-4) 10/27/17 09:30 Troponin T 0.041 ng/mL (0.00-0.029) H 10/27/17 09:30 NT-Pro-B Natriuret Pep 4013 pg/mL (0-900) H 10/26/17 15:37 Total Protein 6.7 g/dL (6.3-8.2) 10/26/17 15:28 Albumin 3.8 g/dL (3.9-5) L 10/26/17 15:28 Albumin/Globulin Ratio 1.3 % 10/26/17 15:28 Triglycerides 75 mg/dL (2-149) 10/27/17 06:14 Cholesterol 118 mg/dL (50-199) 10/27/17 06:14 LDL Cholesterol Direct 47 mg/dL (50-130) L 10/27/17 06:14 HDL Cholesterol 56 mg/dL (40-59) 10/27/17 06:14 Cholesterol/HDL Ratio 2.10 % 10/27/17 06:14 TSH 3.660 mlU/mL (0.270-4.200) 10/26/17 15:28 Urine Color Straw (Yellow) 10/26/17 16:10 Urine Turbidity Clear (Clear) 10/26/17 16:10 Urine pH 7.0 (5.0-7.0) 10/26/17 16:10 Ur Specific Victor 1.008 (1.003-1.030) 10/26/17 16:10 Urine Protein <15 mg/dl mg/dL (Negative) 10/26/17 16:10 Urine Glucose (UA) Neg mg/dL (Negative) 10/26/17 16:10 Urine Ketones Neg mg/dL (Negative) 10/26/17 16:10 Urine Blood Sm (Negative) 10/26/17 16:10 Urine Nitrite Neg (Negative) 10/26/17 16:10 Urine Bilirubin Neg (Negative) 10/26/17 16:10 Urine Urobilinogen < 2.0 mg/dL (<2.0) 10/26/17 16:10 Ur Leukocyte Esterase Neg (Negative) 10/26/17 16:10 Urine WBC (Auto) 1.0 /HPF (0.0-6.0) 10/26/17 16:10 Urine RBC (Auto) 2.0 /HPF (0.0-6.0) 10/26/17 16:10 Urine Mucus Few /HPF 10/26/17 16:10 Urine Opiates Screen Presumptive negative 10/26/17 16:10 Urine Methadone Screen Presumptive negative 10/26/17 16:10 Ur Barbiturates Screen Presumptive negative 10/26/17 16:10 Ur Phencyclidine Scrn Presumptive negative 10/26/17 16:10 Ur Amphetamines Screen Presumptive negative 10/26/17 16:10 U Benzodiazepines Scrn Presumptive negative 10/26/17 16:10 Urine Cocaine Screen Presumptive negative 10/26/17 16:10 U Marijuana (THC) Screen Presumptive negative 10/26/17 16:10 Drugs of Abuse Note Disclamer 10/26/17 16:10 Plasma/Serum Alcohol < 0.01 gm% (0-0.07) 10/26/17 15:28
--- NOTE | 2017-10-28 19:28 | Progress Note ---
Assessment and Plan Patient resting on 2 litres O2. O2 saturation 96%. No complaint of chest pain, shortness of breath or cough. - Patient Problems (1) Chest pain Current Visit: Yes Status: Acute Qualifiers: Chest pain type: chest pain due to myocardial ischemia Ischemic chest pain type: unspecified angina pectoris type Qualified Code(s): I20.9 - Angina pectoris, unspecified Plan to address problem: No complaint of chest pain or shortness of breath today. (2) Acute CHF Current Visit: Yes Status: Acute Qualifiers: Congestive heart failure type: unspecified congestive heart failure type Qualified Code(s): I50.9 - Heart failure, unspecified Plan to address problem: Management as per cardiology. (3) New onset atrial fibrillation Current Visit: Yes Status: Acute Plan to address problem: Management as per cardiology. (4) Syncope and collapse Current Visit: Yes Status: Acute Plan to address problem: Management as per primary and neurology. (5) Peripheral edema Current Visit: Yes Status: Acute Plan to address problem: Obtaining venous doppler studies.of legs. (6) Elevated d-dimer Current Visit: Yes Status: Acute Plan to address problem: Angio CT of chest reported No PE. Subjective Date of service: 10/28/17 Principal diagnosis: syncope Interval history: Patient resting on 2 litres O2. O2 saturation 96%. No complaint of chest pain, shortness of breath or cough. Objective Vital Signs - 12hr 10/28/17 08:00 Respiratory 18 Rate Constitutional: no acute distress, alert Eyes: non-icteric Neck: supple, no lymphadenopathy Ascultation: Bilateral: diminished breath sounds Cardiovascular: irregular rhythm Gastrointestinal: normoactive bowel sounds, soft, non-tender Integumentary: normal Extremities: no cyanosis, edema Neurologic: normal mental status, non-focal exam, pupils equal and round, CN II- XII normal Psychiatric: mood appropriate CBC and BMP: 10/28/17 05:31 10/28/17 05:31 ABG, PT/INR, D-dimer: PT/INR, D-dimer PT 21.8 Sec. (12.2-14.9) H 10/28/17 05:31 INR 1.79 (0.87-1.13) H 10/28/17 05:31 D-Dimer > 14950 ng/mlDDU (0-234) H 10/26/17 15:37 Abnormal lab findings: Abnormal Labs 10/26/17 10/26/17 10/26/17 15:28 15:28 15:37 Plt Count 85 L Lymph % (Auto) 6.7 L Lymph # 0.6 L Seg Neutrophils % 88.3 H Seg Neuts % (Manual) Lymphocytes % (Manual) Seg Neutrophils # 8.1 H Lymphocytes # (Manual) PT 22.7 H INR 1.88 H APTT 41.0 H D-Dimer Sodium Potassium 3.3 L Chloride BUN Creatinine Glucose 202 H Total Bilirubin 1.30 H Troponin T NT-Pro-B Natriuret Pep Albumin 3.8 L LDL Cholesterol Direct 10/26/17 10/26/17 10/27/17 15:37 15:37 06:14 Plt Count Lymph % (Auto) Lymph # Seg Neutrophils % Seg Neuts % (Manual) Lymphocytes % (Manual) Seg Neutrophils # Lymphocytes # (Manual) PT INR APTT D-Dimer > 83298 H Sodium Potassium Chloride BUN Creatinine Glucose Total Bilirubin Troponin T 0.040 H NT-Pro-B Natriuret Pep 4013 H Albumin LDL Cholesterol Direct 47 L 10/27/17 10/27/17 10/28/17 09:30 09:30 05:31 Plt Count 61 L Lymph % (Auto) Lymph # Seg Neutrophils % Seg Neuts % (Manual) 81.0 H Lymphocytes % (Manual) 9.0 L Seg Neutrophils # Lymphocytes # (Manual) 0.6 L PT INR APTT D-Dimer Sodium 146 H Potassium Chloride BUN Creatinine 1.3 H Glucose 137 H Total Bilirubin Troponin T 0.041 H NT-Pro-B Natriuret Pep Albumin LDL Cholesterol Direct 10/28/17 10/28/17 05:31 05:31 Plt Count Lymph % (Auto) Lymph # Seg Neutrophils % Seg Neuts % (Manual) Lymphocytes % (Manual) Seg Neutrophils # Lymphocytes # (Manual) PT 21.8 H INR 1.79 H APTT D-Dimer Sodium 136 L D Potassium Chloride 96.1 L BUN 18 H Creatinine Glucose 218 H Total Bilirubin Troponin T NT-Pro-B Natriuret Pep Albumin LDL Cholesterol Direct Chest x-ray: report reviewed (No acute infiltrates.), image reviewed CT scan - chest: report reviewed (NO PE.), image reviewed
[2017-10-28] MEDS: LOPRESSOR PO SCH (22:57)
[2017-10-29 06:56] LABS: INR 2.22 (0.87-1.13)
[2017-10-29] MEDS: PULMICORT IH SCH ×3 (08:09→21:11)
[2017-10-29] MEDS: BROVANA NEBU IH SCH ×3 (08:09→21:11)
[2017-10-29] MEDS: LASIX PO SCH (09:34)
[2017-10-29] MEDS: PEPCID PO SCH (09:34)
[2017-10-29] MEDS: LOPRESSOR PO SCH ×2 (10:05→21:36)
--- NOTE | 2017-10-29 11:04 | Progress Note ---
Assessment and Plan Assessment and plan: Patient 87 year old female with history of afib, CHF, dementia comes to the emergency room with complaints of almost passing out per family. Syncope, autonomic dysfunction Most likely due to A-fib VS patient confused and Fall Recent echocardiogram showed 50%-55% moderate to severe TR on 10/22/2017 VL caritiod duplex Doppler pending IV fluid hydration Physical therapy following A.fib with RVR Patient initially was on Cardizem drip and currently rate controlled with Lopressor Cardiology consult appreciated Continue on Warfarin and closely monitor INR and currently 2.2 Closely monitor Hyponatrimia Most likely due to hyperglycemia Closely monitor electrolytes Elevated total protein Most likely due to a fever Cardiology following Chronic Diastolic heart failure Recent echocardiogram showed 50%-55% moderate to severe TR on 10/22/2017 Continue on diuretic Strict I&on Daily Weight Cardiology following Fall Frequant neuro check Fall precaution Hyperlipidemia Continue on antillipid agents Disposition Continue inpatient care. DVT prophylaxis On Warfarin and closely monitor INR History Interval history: Patient denies chest pain or shortness of breath. Labs and nursing notes reviewed. Hospitalist Physical - Physical exam Narrative exam: Patient confused but oriented to self.Lab and nursing notes reviewed. - Constitutional Vitals: Temp Pulse Resp BP Pulse Ox 97.5 F L 114 H 20 139/87 99 10/29/17 05:51 10/29/17 10:05 10/29/17 05:51 10/29/17 10:05 10/29/17 08:14 General appearance: Present: no acute distress, other (confused) - EENT Eyes: Present: PERRL ENT: hearing intact - Neck Neck: Present: supple - Respiratory Respiratory effort: normal Respiratory: bilateral: CTA - Cardiovascular Rhythm: regular Heart Sounds: Present: S1 & S2 - Extremities Extremity abnormal: other (bilateral restraint and role belt) - Abdominal General gastrointestinal: soft, non-tender - Integumentary Integumentary: Present: clear, warm, dry - Psychiatric Psychiatric: other (impaired judgment.) - Neurologic Neurologic: moves all extremities - Allied Health Allied health notes reviewed: nursing Results - Labs CBC & Chem 7: 10/28/17 05:31 10/28/17 05:31 Labs: Laboratory Last Values WBC 7.0 K/mm3 (4.5-11.0) 10/28/17 05:31 RBC 4.14 M/mm3 (3.65-5.03) 10/28/17 05:31 Hgb 13.0 gm/dl (10.1-14.3) 10/28/17 05:31 Hct 38.6 % (30.3-42.9) 10/28/17 05:31 MCV 93 fl (79-97) 10/28/17 05:31 MCH 31 pg (28-32) 10/28/17 05:31 MCHC 34 % (30-34) 10/28/17 05:31 RDW 15.0 % (13.2-15.2) 10/28/17 05:31 Plt Count 61 K/mm3 (140-440) L 10/28/17 05:31 Lymph % (Auto) 6.7 % (13.4-35.0) L 10/26/17 15:28 [place] % (Auto) 4.7 % (0.0-7.3) 10/26/17 15:28 Eos % (Auto) 0.1 % (0.0-4.3) 10/26/17 15:28 Baso % (Auto) 0.2 % (0.0-1.8) 10/26/17 15:28 Lymph # 0.6 K/mm3 (1.2-5.4) L 10/26/17 15:28 [place] # 0.4 K/mm3 (0.0-0.8) 10/26/17 15:28 Eos # 0.0 K/mm3 (0.0-0.4) 10/26/17 15:28 Baso # 0.0 K/mm3 (0.0-0.1) 10/26/17 15:28 Add Manual Diff Complete 10/28/17 05:31 Total Counted 100 10/28/17 05:31 Seg Neutrophils % Industrial Maintenance Mechanic 10/28/17 05:31 Seg Neuts % (Manual) 81.0 % (40.0-70.0) H 10/28/17 05:31 Band Neutrophils % 9.0 % 10/28/17 05:31 Lymphocytes % (Manual) 9.0 % (13.4-35.0) L 10/28/17 05:31 Reactive Lymphs % (Man) 0 % 10/28/17 05:31 Monocytes % (Manual) 1.0 % (0.0-7.3) 10/28/17 05:31 Eosinophils % (Manual) 0 % (0.0-4.3) 10/28/17 05:31 Basophils % (Manual) 0 % (0.0-1.8) 10/28/17 05:31 Metamyelocytes % 0 % 10/28/17 05:31 Myelocytes % 0 % 10/28/17 05:31 Promyelocytes % 0 % 10/28/17 05:31 Blast Cells % 0 % 10/28/17 05:31 Nucleated RBC % Not Reportable 10/28/17 05:31 Seg Neutrophils # 8.1 K/mm3 (1.8-7.7) H 10/26/17 15:28 Seg Neutrophils # Man 5.7 K/mm3 (1.8-7.7) 10/28/17 05:31 Band Neutrophils # 0.6 K/mm3 10/28/17 05:31 Lymphocytes # (Manual) 0.6 K/mm3 (1.2-5.4) L 10/28/17 05:31 Abs React Lymphs (Man) 0.0 K/mm3 10/28/17 05:31 Monocytes # (Manual) 0.1 K/mm3 (0.0-0.8) 10/28/17 05:31 Eosinophils # (Manual) 0.0 K/mm3 (0.0-0.4) 10/28/17 05:31 Basophils # (Manual) 0.0 K/mm3 (0.0-0.1) 10/28/17 05:31 Metamyelocytes # 0.0 K/mm3 10/28/17 05:31 Myelocytes # 0.0 K/mm3 10/28/17 05:31 Promyelocytes # 0.0 K/mm3 10/28/17 05:31 Blast Cells # 0.0 K/mm3 10/28/17 05:31 WBC Morphology Not Reportable 10/28/17 05:31 Hypersegmented Neuts Not Reportable 10/28/17 05:31 Hyposegmented Neuts Not Reportable 10/28/17 05:31 Hypogranular Neuts Not Reportable 10/28/17 05:31 Smudge Cells Not Reportable 10/28/17 05:31 Toxic Granulation Not Reportable 10/28/17 05:31 Toxic Vacuolation Not Reportable 10/28/17 05:31 Dohle Bodies Not Reportable 10/28/17 05:31 Pelger-Huet Anomaly Not Reportable 10/28/17 05:31 Omid Rods Not Reportable 10/28/17 05:31 Platelet Estimate Consistent w auto 10/28/17 05:31 Clumped Platelets Not Reportable 10/28/17 05:31 Plt Clumps, EDTA Not Reportable 10/28/17 05:31 Large Platelets Not Reportable 10/28/17 05:31 Giant Platelets Not Reportable 10/28/17 05:31 Platelet Satelliting Not Reportable 10/28/17 05:31 Plt Morphology Comment Not Reportable 10/28/17 05:31 RBC Morphology Not Reportable 10/28/17 05:31 Dimorphic RBCs Not Reportable 10/28/17 05:31 Polychromasia Not Reportable 10/28/17 05:31 Hypochromasia Not Reportable 10/28/17 05:31 Poikilocytosis Not Reportable 10/28/17 05:31 Anisocytosis Not Reportable 10/28/17 05:31 Microcytosis Not Reportable 10/28/17 05:31 Macrocytosis Not Reportable 10/28/17 05:31 Spherocytes Not Reportable 10/28/17 05:31 Pappenheimer Bodies Not Reportable 10/28/17 05:31 Sickle Cells Not Reportable 10/28/17 05:31 Target Cells Not Reportable 10/28/17 05:31 Tear Drop Cells Not Reportable 10/28/17 05:31 Ovalocytes Few 10/28/17 05:31 Helmet Cells Not Reportable 10/28/17 05:31 Morejon-[place] Bodies Not Reportable 10/28/17 05:31 [place] Rings Not Reportable 10/28/17 05:31 [place] Cells Not Reportable 10/28/17 05:31 Bite Cells Not Reportable 10/28/17 05:31 Crenated Cell Not Reportable 10/28/17 05:31 Elliptocytes Not Reportable 10/28/17 05:31 Acanthocytes (Spur) Not Reportable 10/28/17 05:31 Rouleaux Not Reportable 10/28/17 05:31 Hemoglobin C Crystals Not Reportable 10/28/17 05:31 Schistocytes Not Reportable 10/28/17 05:31 Malaria parasites Not Reportable 10/28/17 05:31 Naveed Bodies Not Reportable 10/28/17 05:31 Hem Pathologist Commnt No 10/28/17 05:31 PT 25.9 Sec. (12.2-14.9) H 10/29/17 05:55 INR 2.22 (0.87-1.13) H 10/29/17 05:55 APTT 41.0 Sec. (24.2-36.6) H 10/26/17 15:37 D-Dimer > 73687 ng/mlDDU (0-234) H 10/26/17 15:37 Sodium 136 mmol/L (137-145) L D 10/28/17 05:31 Potassium 3.7 mmol/L (3.6-5.0) 10/28/17 05:31 Chloride 96.1 mmol/L (98-107) L 10/28/17 05:31 Carbon Dioxide 25 mmol/L (22-30) 10/28/17 05:31 Anion Gap 19 mmol/L 10/28/17 05:31 BUN 18 mg/dL (7-17) H 10/28/17 05:31 Creatinine 1.2 mg/dL (0.7-1.2) 10/28/17 05:31 Estimated GFR 43 ml/min 10/28/17 05:31 BUN/Creatinine Ratio 15 % 10/28/17 05:31 Glucose 218 mg/dL (65-100) H 10/28/17 05:31 Calcium 8.8 mg/dL (8.4-10.2) 10/28/17 05:31 Magnesium 1.90 mg/dL (1.7-2.3) 10/27/17 09:30 Total Bilirubin 1.30 mg/dL (0.1-1.2) H 10/26/17 15:28 AST 33 units/L (5-40) 10/26/17 15:28 ALT 24 units/L (7-56) 10/26/17 15:28 Alkaline Phosphatase 69 units/L (35-129) 10/26/17 15:28 Total Creatine Kinase 72 units/L (30-135) 10/27/17 09:30 CK-MB (CK-2) 2.1 ng/mL (0.0-4.0) 10/27/17 09:30 CK-MB (CK-2) Rel Index 2.9 (0-4) 10/27/17 09:30 Troponin T 0.041 ng/mL (0.00-0.029) H 10/27/17 09:30 NT-Pro-B Natriuret Pep 4013 pg/mL (0-900) H 10/26/17 15:37 Total Protein 6.7 g/dL (6.3-8.2) 10/26/17 15:28 Albumin 3.8 g/dL (3.9-5) L 10/26/17 15:28 Albumin/Globulin Ratio 1.3 % 10/26/17 15:28 Triglycerides 75 mg/dL (2-149) 10/27/17 06:14 Cholesterol 118 mg/dL (50-199) 10/27/17 06:14 LDL Cholesterol Direct 47 mg/dL (50-130) L 10/27/17 06:14 HDL Cholesterol 56 mg/dL (40-59) 10/27/17 06:14 Cholesterol/HDL Ratio 2.10 % 10/27/17 06:14 TSH 3.660 mlU/mL (0.270-4.200) 10/26/17 15:28 Urine Color Straw (Yellow) 10/26/17 16:10 Urine Turbidity Clear (Clear) 10/26/17 16:10 Urine pH 7.0 (5.0-7.0) 10/26/17 16:10 Ur Specific [place] 1.008 (1.003-1.030) 10/26/17 16:10 Urine Protein <15 mg/dl mg/dL (Negative) 10/26/17 16:10 Urine Glucose (UA) Neg mg/dL (Negative) 10/26/17 16:10 Urine Ketones Neg mg/dL (Negative) 10/26/17 16:10 Urine Blood Sm (Negative) 10/26/17 16:10 Urine Nitrite Neg (Negative) 10/26/17 16:10 Urine Bilirubin Neg (Negative) 10/26/17 16:10 Urine Urobilinogen < 2.0 mg/dL (<2.0) 10/26/17 16:10 Ur Leukocyte Esterase Neg (Negative) 10/26/17 16:10 Urine WBC (Auto) 1.0 /HPF (0.0-6.0) 10/26/17 16:10 Urine RBC (Auto) 2.0 /HPF (0.0-6.0) 10/26/17 16:10 Urine Mucus Few /HPF 10/26/17 16:10 Urine Opiates Screen Presumptive negative 10/26/17 16:10 Urine Methadone Screen Presumptive negative 10/26/17 16:10 Ur Barbiturates Screen Presumptive negative 10/26/17 16:10 Ur Phencyclidine Scrn Presumptive negative 10/26/17 16:10 Ur Amphetamines Screen Presumptive negative 10/26/17 16:10 U Benzodiazepines Scrn Presumptive negative 10/26/17 16:10 Urine Cocaine Screen Presumptive negative 10/26/17 16:10 U Marijuana (THC) Screen Presumptive negative 10/26/17 16:10 Drugs of Abuse Note Disclamer 10/26/17 16:10 Plasma/Serum Alcohol < 0.01 gm% (0-0.07) 10/26/17 15:28
--- NOTE | 2017-10-29 14:08 | Progress Note ---
Subjective Date of service: 10/29/17 Principal diagnosis: Acute on Chronic Hypoxemic Resp Failure; A-Fib with RVR; Syncope; Obesity Interval history: Patient is seen today for: Acute on Chronic Hypoxemic Resp Failure; A-Fib with RVR; Syncope; Obesity Seen and examined at bedside; 24hour events reviewed; nursing and respiratory care staff consulted; no adverse overnight events reported to me; Objective Vital Signs - 12hr 10/29/17 10/29/17 10/29/17 04:30 05:51 08:14 Temperature 97.5 F L 97.5 F L Pulse Rate 110 H 109 H Pulse Rate [ 106 H Right] Respiratory 20 Rate Blood Pressure 131/59 131/59 O2 Sat by Pulse 96 96 99 Oximetry 10/29/17 10:05 Temperature Pulse Rate 114 H Pulse Rate [ Right] Respiratory Rate Blood Pressure 139/87 O2 Sat by Pulse Oximetry Constitutional: no acute distress, alert Eyes: non-icteric Neck: supple, no lymphadenopathy Ascultation: Bilateral: diminished breath sounds Cardiovascular: irregular rhythm Gastrointestinal: normoactive bowel sounds, soft, non-tender Integumentary: normal Extremities: no cyanosis, edema Neurologic: normal mental status, non-focal exam, pupils equal and round, CN II- XII normal Psychiatric: mood appropriate CBC and BMP: 10/28/17 05:31 10/28/17 05:31 ABG, PT/INR, D-dimer: PT/INR, D-dimer PT 25.9 Sec. (12.2-14.9) H 10/29/17 05:55 INR 2.22 (0.87-1.13) H 10/29/17 05:55 D-Dimer > 55739 ng/mlDDU (0-234) H 10/26/17 15:37 Abnormal lab findings: Abnormal Labs 10/26/17 10/26/17 10/26/17 15:28 15:28 15:37 Plt Count 85 L Lymph % (Auto) 6.7 L Lymph # 0.6 L Seg Neutrophils % 88.3 H Seg Neuts % (Manual) Lymphocytes % (Manual) Seg Neutrophils # 8.1 H Lymphocytes # (Manual) PT 22.7 H INR 1.88 H APTT 41.0 H D-Dimer Sodium Potassium 3.3 L Chloride BUN Creatinine Glucose 202 H Total Bilirubin 1.30 H Troponin T NT-Pro-B Natriuret Pep Albumin 3.8 L LDL Cholesterol Direct 10/26/17 10/26/17 10/27/17 15:37 15:37 06:14 Plt Count Lymph % (Auto) Lymph # Seg Neutrophils % Seg Neuts % (Manual) Lymphocytes % (Manual) Seg Neutrophils # Lymphocytes # (Manual) PT INR APTT D-Dimer > 35555 H Sodium Potassium Chloride BUN Creatinine Glucose Total Bilirubin Troponin T 0.040 H NT-Pro-B Natriuret Pep 4013 H Albumin LDL Cholesterol Direct 47 L 10/27/17 10/27/17 10/28/17 09:30 09:30 05:31 Plt Count 61 L Lymph % (Auto) Lymph # Seg Neutrophils % Seg Neuts % (Manual) 81.0 H Lymphocytes % (Manual) 9.0 L Seg Neutrophils # Lymphocytes # (Manual) 0.6 L PT INR APTT D-Dimer Sodium 146 H Potassium Chloride BUN Creatinine 1.3 H Glucose 137 H Total Bilirubin Troponin T 0.041 H NT-Pro-B Natriuret Pep Albumin LDL Cholesterol Direct 10/28/17 10/28/17 10/29/17 05:31 05:31 05:55 Plt Count Lymph % (Auto) Lymph # Seg Neutrophils % Seg Neuts % (Manual) Lymphocytes % (Manual) Seg Neutrophils # Lymphocytes # (Manual) PT 21.8 H 25.9 H INR 1.79 H 2.22 H APTT D-Dimer Sodium 136 L D Potassium Chloride 96.1 L BUN 18 H Creatinine Glucose 218 H Total Bilirubin Troponin T NT-Pro-B Natriuret Pep Albumin LDL Cholesterol Direct
--- NOTE | 2017-10-29 14:13 | Progress Note ---
Assessment and Plan Assessment: Syncope/near syncope Atrial fibrillation with RVR on coumadin-->currently CVR Hypertension Hyperlipidemia Plan: Stable cardiac status. Continue current management. Will see as needed. The patient has been seen in conjunction with Dr. Arizmendi who agrees with the assessment and plan of care. Subjective Date of service: 10/29/17 Principal diagnosis: syncope Interval history: Patient is resting in bed. No new complaints. No acute distress noted. Atrial fibrillation with CVR on the monitor. Objective Last Vital Signs Temp 97.5 F L 10/29/17 05:51 Pulse 114 H 10/29/17 10:05 Resp 20 10/29/17 05:51 BP 139/87 10/29/17 10:05 Pulse Ox 99 10/29/17 08:14 - Physical Examination General: No Apparent Distress Neck: Positive: neck supple, trachea midline Cardiac: Positive: irregularly irregular, S1/S2 Lungs: Positive: clear to auscultation Neuro: Positive: Grossly Intact Abdomen: Positive: Soft, Active Bowel Sounds. Negative: Tender Skin: Positive: Clear. Negative: Rash Extremities: Present: normal. Absent: edema - Labs and Meds Coagulation 10/29/17 Range/Units 05:55 PT 25.9 H (12.2-14.9) Sec. INR 2.22 H (0.87-1.13) - Imaging and Cardiology EKG: image reviewed Echo: report reviewed (10/22/17: EF 50-55%, moderate to severe TR) - Telemetry EKG Rhythm: Atrial Fibrillation
[2017-10-29] MEDS: COUMADIN PO SCH (17:26)
[2017-10-30 01:41] LABS: Bacteria,Urine 1+ /HPF (Negative); Bilirubin,Urine NEG (Negative); Blood,Urine SM (Negative); Color,Urine Yellow (Yellow); Nitrite,Urine NEG (Negative); Protein,Urine <15 mg/dL mg/dL (Negative)
[2017-10-30 06:43] LABS: INR 2.61 (0.87-1.13)
[2017-10-30] MEDS: PULMICORT IH SCH (09:22)
[2017-10-30] MEDS: BROVANA NEBU IH SCH (09:22)
--- NOTE | 2017-10-30 09:24 | Progress Note ---
Hospitalist Physical - Constitutional Vitals: Temp Pulse Resp BP Pulse Ox 97.7 F 72 20 109/54 100 10/30/17 04:33 10/30/17 04:33 10/30/17 04:33 10/30/17 04:33 10/30/17 04:33 General appearance: Present: no acute distress, other (confused) Results - Labs CBC & Chem 7: 10/28/17 05:31 10/28/17 05:31 Labs: Laboratory Last Values WBC 7.0 K/mm3 (4.5-11.0) 10/28/17 05:31 RBC 4.14 M/mm3 (3.65-5.03) 10/28/17 05:31 Hgb 13.0 gm/dl (10.1-14.3) 10/28/17 05:31 Hct 38.6 % (30.3-42.9) 10/28/17 05:31 MCV 93 fl (79-97) 10/28/17 05:31 MCH 31 pg (28-32) 10/28/17 05:31 MCHC 34 % (30-34) 10/28/17 05:31 RDW 15.0 % (13.2-15.2) 10/28/17 05:31 Plt Count 61 K/mm3 (140-440) L 10/28/17 05:31 Lymph % (Auto) 6.7 % (13.4-35.0) L 10/26/17 15:28 [place] % (Auto) 4.7 % (0.0-7.3) 10/26/17 15:28 Eos % (Auto) 0.1 % (0.0-4.3) 10/26/17 15:28 Baso % (Auto) 0.2 % (0.0-1.8) 10/26/17 15:28 Lymph # 0.6 K/mm3 (1.2-5.4) L 10/26/17 15:28 [place] # 0.4 K/mm3 (0.0-0.8) 10/26/17 15:28 Eos # 0.0 K/mm3 (0.0-0.4) 10/26/17 15:28 Baso # 0.0 K/mm3 (0.0-0.1) 10/26/17 15:28 Add Manual Diff Complete 10/28/17 05:31 Total Counted 100 10/28/17 05:31 Seg Neutrophils % Warehouse Selector 10/28/17 05:31 Seg Neuts % (Manual) 81.0 % (40.0-70.0) H 10/28/17 05:31 Band Neutrophils % 9.0 % 10/28/17 05:31 Lymphocytes % (Manual) 9.0 % (13.4-35.0) L 10/28/17 05:31 Reactive Lymphs % (Man) 0 % 10/28/17 05:31 Monocytes % (Manual) 1.0 % (0.0-7.3) 10/28/17 05:31 Eosinophils % (Manual) 0 % (0.0-4.3) 10/28/17 05:31 Basophils % (Manual) 0 % (0.0-1.8) 10/28/17 05:31 Metamyelocytes % 0 % 10/28/17 05:31 Myelocytes % 0 % 10/28/17 05:31 Promyelocytes % 0 % 10/28/17 05:31 Blast Cells % 0 % 10/28/17 05:31 Nucleated RBC % Not Reportable 10/28/17 05:31 Seg Neutrophils # 8.1 K/mm3 (1.8-7.7) H 10/26/17 15:28 Seg Neutrophils # Man 5.7 K/mm3 (1.8-7.7) 10/28/17 05:31 Band Neutrophils # 0.6 K/mm3 10/28/17 05:31 Lymphocytes # (Manual) 0.6 K/mm3 (1.2-5.4) L 10/28/17 05:31 Abs React Lymphs (Man) 0.0 K/mm3 10/28/17 05:31 Monocytes # (Manual) 0.1 K/mm3 (0.0-0.8) 10/28/17 05:31 Eosinophils # (Manual) 0.0 K/mm3 (0.0-0.4) 10/28/17 05:31 Basophils # (Manual) 0.0 K/mm3 (0.0-0.1) 10/28/17 05:31 Metamyelocytes # 0.0 K/mm3 10/28/17 05:31 Myelocytes # 0.0 K/mm3 10/28/17 05:31 Promyelocytes # 0.0 K/mm3 10/28/17 05:31 Blast Cells # 0.0 K/mm3 10/28/17 05:31 WBC Morphology Not Reportable 10/28/17 05:31 Hypersegmented Neuts Not Reportable 10/28/17 05:31 Hyposegmented Neuts Not Reportable 10/28/17 05:31 Hypogranular Neuts Not Reportable 10/28/17 05:31 Smudge Cells Not Reportable 10/28/17 05:31 Toxic Granulation Not Reportable 10/28/17 05:31 Toxic Vacuolation Not Reportable 10/28/17 05:31 Dohle Bodies Not Reportable 10/28/17 05:31 Pelger-Huet Anomaly Not Reportable 10/28/17 05:31 Omid Rods Not Reportable 10/28/17 05:31 Platelet Estimate Consistent w auto 10/28/17 05:31 Clumped Platelets Not Reportable 10/28/17 05:31 Plt Clumps, EDTA Not Reportable 10/28/17 05:31 Large Platelets Not Reportable 10/28/17 05:31 Giant Platelets Not Reportable 10/28/17 05:31 Platelet Satelliting Not Reportable 10/28/17 05:31 Plt Morphology Comment Not Reportable 10/28/17 05:31 RBC Morphology Not Reportable 10/28/17 05:31 Dimorphic RBCs Not Reportable 10/28/17 05:31 Polychromasia Not Reportable 10/28/17 05:31 Hypochromasia Not Reportable 10/28/17 05:31 Poikilocytosis Not Reportable 10/28/17 05:31 Anisocytosis Not Reportable 10/28/17 05:31 Microcytosis Not Reportable 10/28/17 05:31 Macrocytosis Not Reportable 10/28/17 05:31 Spherocytes Not Reportable 10/28/17 05:31 Pappenheimer Bodies Not Reportable 10/28/17 05:31 Sickle Cells Not Reportable 10/28/17 05:31 Target Cells Not Reportable 10/28/17 05:31 Tear Drop Cells Not Reportable 10/28/17 05:31 Ovalocytes Few 10/28/17 05:31 Helmet Cells Not Reportable 10/28/17 05:31 [place] Bodies Not Reportable 10/28/17 05:31 [place] Rings Not Reportable 10/28/17 05:31 [place] Cells Not Reportable 10/28/17 05:31 Bite Cells Not Reportable 10/28/17 05:31 Crenated Cell Not Reportable 10/28/17 05:31 Elliptocytes Not Reportable 10/28/17 05:31 Acanthocytes (Spur) Not Reportable 10/28/17 05:31 Rouleaux Not Reportable 10/28/17 05:31 Hemoglobin C Crystals Not Reportable 10/28/17 05:31 Schistocytes Not Reportable 10/28/17 05:31 Malaria parasites Not Reportable 10/28/17 05:31 Naveed Bodies Not Reportable 10/28/17 05:31 Hem Pathologist Commnt No 10/28/17 05:31 PT 29.5 Sec. (12.2-14.9) H 10/30/17 05:50 INR 2.61 (0.87-1.13) H 10/30/17 05:50 APTT 41.0 Sec. (24.2-36.6) H 10/26/17 15:37 D-Dimer > 40307 ng/mlDDU (0-234) H 10/26/17 15:37 Sodium 136 mmol/L (137-145) L D 10/28/17 05:31 Potassium 3.7 mmol/L (3.6-5.0) 10/28/17 05:31 Chloride 96.1 mmol/L (98-107) L 10/28/17 05:31 Carbon Dioxide 25 mmol/L (22-30) 10/28/17 05:31 Anion Gap 19 mmol/L 10/28/17 05:31 BUN 18 mg/dL (7-17) H 10/28/17 05:31 Creatinine 1.2 mg/dL (0.7-1.2) 10/28/17 05:31 Estimated GFR 43 ml/min 10/28/17 05:31 BUN/Creatinine Ratio 15 % 10/28/17 05:31 Glucose 218 mg/dL (65-100) H 10/28/17 05:31 Calcium 8.8 mg/dL (8.4-10.2) 10/28/17 05:31 Magnesium 1.90 mg/dL (1.7-2.3) 10/27/17 09:30 Total Bilirubin 1.30 mg/dL (0.1-1.2) H 10/26/17 15:28 AST 33 units/L (5-40) 10/26/17 15:28 ALT 24 units/L (7-56) 10/26/17 15:28 Alkaline Phosphatase 69 units/L (35-129) 10/26/17 15:28 Total Creatine Kinase 72 units/L (30-135) 10/27/17 09:30 CK-MB (CK-2) 2.1 ng/mL (0.0-4.0) 10/27/17 09:30 CK-MB (CK-2) Rel Index 2.9 (0-4) 10/27/17 09:30 Troponin T 0.041 ng/mL (0.00-0.029) H 10/27/17 09:30 NT-Pro-B Natriuret Pep 4013 pg/mL (0-900) H 10/26/17 15:37 Total Protein 6.7 g/dL (6.3-8.2) 10/26/17 15:28 Albumin 3.8 g/dL (3.9-5) L 10/26/17 15:28 Albumin/Globulin Ratio 1.3 % 10/26/17 15:28 Triglycerides 75 mg/dL (2-149) 10/27/17 06:14 Cholesterol 118 mg/dL (50-199) 10/27/17 06:14 LDL Cholesterol Direct 47 mg/dL (50-130) L 10/27/17 06:14 HDL Cholesterol 56 mg/dL (40-59) 10/27/17 06:14 Cholesterol/HDL Ratio 2.10 % 10/27/17 06:14 TSH 3.660 mlU/mL (0.270-4.200) 10/26/17 15:28 Urine Color Yellow (Yellow) 10/30/17 01:00 Urine Turbidity Clear (Clear) 10/30/17 01:00 Urine pH 6.0 (5.0-7.0) 10/30/17 01:00 Ur Specific [place] 1.009 (1.003-1.030) 10/30/17 01:00 Urine Protein <15 mg/dl mg/dL (Negative) 10/30/17 01:00 Urine Glucose (UA) 50 mg/dL (Negative) 10/30/17 01:00 Urine Ketones Neg mg/dL (Negative) 10/30/17 01:00 Urine Blood Sm (Negative) 10/30/17 01:00 Urine Nitrite Neg (Negative) 10/30/17 01:00 Urine Bilirubin Neg (Negative) 10/30/17 01:00 Urine Urobilinogen 4.0 mg/dL (<2.0) 10/30/17 01:00 Ur Leukocyte Esterase Mod (Negative) 10/30/17 01:00 Urine WBC (Auto) 15.0 /HPF (0.0-6.0) H 10/30/17 01:00 Urine RBC (Auto) 2.0 /HPF (0.0-6.0) 10/30/17 01:00 U Epithel Cells (Auto) 2.0 /HPF (0-13.0) 10/30/17 01:00 Urine Bacteria (Auto) 1+ /HPF (Negative) 10/30/17 01:00 Urine Mucus Few /HPF 10/26/17 16:10 Urine Opiates Screen Presumptive negative 10/26/17 16:10 Urine Methadone Screen Presumptive negative 10/26/17 16:10 Ur Barbiturates Screen Presumptive negative 10/26/17 16:10 Ur Phencyclidine Scrn Presumptive negative 10/26/17 16:10 Ur Amphetamines Screen Presumptive negative 10/26/17 16:10 U Benzodiazepines Scrn Presumptive negative 10/26/17 16:10 Urine Cocaine Screen Presumptive negative 10/26/17 16:10 U Marijuana (THC) Screen Presumptive negative 10/26/17 16:10 Drugs of Abuse Note Disclamer 10/26/17 16:10 Plasma/Serum Alcohol < 0.01 gm% (0-0.07) 10/26/17 15:28
--- NOTE | 2017-10-30 09:27 | Vascular Lab Report ---
LOWER EXTREMITY VENOUS DUPLEX: REASON FOR EXAM: Swelling of the lower extremities. COMMENTS ON THE RIGHT: All veins visualized are freely compressible without evidence of internal echogenicity. Flow is spontaneous and phasic throughout. There are soft tissue change in the right knee area most compatible with an effusion or Hurt's cyst. COMMENTS ON THE LEFT: All veins visualized are freely compressible without evidence of internal echogenicity. Flow is spontaneous and phasic throughout. There are soft tissue change in the left knee area most compatible with an effusion or Hurt's cyst. IMPRESSION: No evidence of acute or chronic deep venous thrombosis in either lower extremity.
[2017-10-30] MEDS: LOPRESSOR PO SCH (10:23)
[2017-10-30] MEDS: PEPCID PO SCH (10:23)
[2017-10-30] MEDS: LASIX PO SCH (10:23)
--- NOTE | 2017-10-30 11:48 | Discharge Summary ---
<MIRNA FRANCO - Last Filed: 10/30/17 13:38> Providers - Providers Date of Admission: 10/27/17 03:31 Date of discharge: 10/30/17 Attending physician: MONICA FIELD MD 10/27/17 03:31 Consult to Physician [CONS] Routine Consulting Provider: ZHAO GALLEGO Reason For Exam: cc Place consult to:: Dr. Gallego Notified:: Answering Service Phone number called:: [phone] Was contact made?: No Comment:: Answering Service was notified 10/28/17 10:47 Physical Therapy Evaluation and Treat [CONS] Routine Comment: Reason For Exam: debility 10/28/17 10:49 Occupational Therapy Evaluate and Treat [CONS] Routine Comment: Reason For Exam: eval & treat Primary care physician: JOSEFINA BROWN Hospitalization Reason for admission: A-fib with RVR Condition: Critical Hospital course: Patient 87 year old female with history of afib, CHF, dementia comes to the emergency room with complaints of almost passing out per family. Patient was diagnosed with Syncope, autonomic dysfunction,A.fib with RVR, Hyponatrimia, Chronic Diastolic heart failure, Fall, Hyperlipidemia. Patient presented with A. fib with RVR started on Cardizem drip and converted to sinus and rate is controlled with metoprolol. Echocardiogram with 50%-55% moderate to severe TR on 10/22/2017. Unremarkable VL caritiod duplex Doppler. Patient syncope was probably from A-fib. Patient urine positive for UTI. She is discharge with oral antibiotic. She was treated with Cardizem drip, IV fluid hydration and antihypertensive medications. Patient at times confused but its her baseline per family. Patient is clinically improved. Patient discharge to SNF. Patient advised to follow-up INR level with her primary care provider. Discharge Diagnosed Syncope, autonomic dysfunction A.fib with RVR Hyponatrimia Elevated total protein Chronic Diastolic heart failure Fall Hyperlipidemia Disposition: DC/TX-03 SNF [facility] C[facility] Time spent for discharge: 33 minutes Core Measure Documentation - Palliative Care Palliative Care/ Comfort Measures: Not Applicable - Core Measures Any of the following diagnoses?: none Exam - Constitutional Vitals: Temp Pulse Resp BP Pulse Ox 97.4 F L 79 18 134/74 97 10/30/17 08:34 10/30/17 10:23 10/30/17 09:32 10/30/17 10:23 10/30/17 09:22 General appearance: Present: no acute distress, other (Confued ) - EENT Eyes: Present: PERRL ENT: hearing intact - Neck Neck: Present: supple - Respiratory Respiratory effort: normal Respiratory: bilateral: CTA - Cardiovascular Rhythm: regular Heart Sounds: Present: S1 & S2 - Abdominal General gastrointestinal: Present: soft, non-tender Female genitourinary: Present: deferred - Rectal Rectal Exam: deferred - Integumentary Integumentary: Present: clear, warm, dry - Musculoskeletal Musculoskeletal: strength equal bilaterally - Psychiatric Psychiatric: appropriate mood/affect - Neurologic Neurologic: moves all extremities - Allied Health Allied health notes reviewed: nursing Plan Additional Instructions: Follow-up INR level with PCP. Follow up with: JOSEFINA BROWN MD [Primary Care Provider] - 3-5 Days Forms: Warfarin Discharge Instruction Prescriptions: Levofloxacin [Levaquin] 250 mg PO QDAY 5 Days tablet <MONICA FIELD - Last Filed: 11/08/17 23:19> Providers - Providers Date of Admission: 10/27/17 03:31 Attending physician: MONICA FIELD MD 10/27/17 03:31 Consult to Physician [CONS] Routine Consulting Provider: ZHAO GALLEGO Reason For Exam: cc Place consult to:: Dr. Gallego Notified:: Answering Service Phone number called:: [phone] Was contact made?: No Comment:: Answering Service was notified 10/28/17 10:47 Physical Therapy Evaluation and Treat [CONS] Routine Comment: Reason For Exam: debility 10/28/17 10:49 Occupational Therapy Evaluate and Treat [CONS] Routine Comment: Reason For Exam: eval & treat Primary care physician: JOSEFINA BROWN Exam - Constitutional Vitals: Temp Pulse Resp BP Pulse Ox 98.1 F 80 18 136/63 100 10/30/17 14:00 10/30/17 14:00 10/30/17 14:00 10/30/17 14:00 10/30/17 14:00
[2017-10-30 16:21] VITALS: BP 136/63
[2017-10-30] MEDS ORDERED: COUMADIN PO SCH (17:00)
== END 2017-10-30 14:35 | DRG 73 ==
LOC: ED 14:59 → CC1 10-27 03:31 → 4A 10-27 21:55
PROVIDERS: ADMIT Internal Medicine; ATTEND Internal Medicine
DX: G90.9 Disorder of the autonomic nervous system, unspecified (principal); J96.21 Acute and chronic respiratory failure with hypoxia; I50.33 Acute on chronic diastolic (congestive) heart failure; E87.1 Hypo-osmolality and hyponatremia; D68.9 Coagulation defect, unspecified; I48.91 Unspecified atrial fibrillation; F03.90 Unspecified dementia, unspecified severity, without behavioral disturbance, psychotic disturbance, mood disturbance, and anxiety; I11.0 Hypertensive heart disease with heart failure; Z82.49 Family history of ischemic heart disease and other diseases of the circulatory system; E66.9 Obesity, unspecified; T45.515A Adverse effect of anticoagulants, initial encounter; Y92.89 Other specified places as the place of occurrence of the external cause; Z88.5 Allergy status to narcotic agent; Z79.899 Other long term (current) drug therapy; Z68.20 Body mass index [BMI] 20.0-20.9, adult
CPT/HCPCS: 36415; 70460; 71010; 71275; 80048; 80053; 80061; 80307; 80320; 81001; 82550; 82553; 83735; 83880; 84443; 84484; 85007; 85025; 85379; 85610; 85730; 93005; 93010; 93970; 94640; 94760; 96374; 96375; A9270-GY; G0480; G8978-GP; G8979-GP; G8987-GO; G8988-GO; J2405; J2920; Q9967

== ENCOUNTER 2017-12-26 15:28 | Outpatient (CLI) | payer MEDICARE ==
--- NOTE | 2017-12-26 16:36 | XRay Report ---
XRAY CHEST TWO VIEWS: 12/26/17 15:28:00 CLINICAL: Cough. COMPARISON: 10/26/17 FINDINGS: Normal heart and pulmonary vasculature. The lungs are normally expanded and clear except for mild bibasal interstitial scarring. No airspace disease or pleural effusion. Aortic tortuosity.Scoliosis and mild degenerative changes in the spine. IMPRESSION: No acute cardiopulmonary process.Mild bibasal chronic interstitial changes.
== END 2017-12-26 15:29 | disposition home or self-care (01) ==
LOC: SPVIMAG 15:28
PROVIDERS: ATTEND Internal Medicine
DX: R05 Cough (principal); M47.894 Other spondylosis, thoracic region; M41.84 Other forms of scoliosis, thoracic region; Q25.46 Tortuous aortic arch
CPT/HCPCS: 71046

== ENCOUNTER 2017-12-31 20:56 | Emergency (ER) | payer MEDICARE ==
[2017-12-31 21:20] LABS: Basophils % (Auto) 0.7 % (0.0-1.8); Eosinophils # (Auto) 0.2 K/mm3 (0.0-0.4); Hematocrit 34.4 % (30.3-42.9); Hemoglobin 11.4 gm/dl (10.1-14.3); Lymphocytes # (Auto) 1.1 K/mm3 (1.2-5.4); Lymphocytes % (Auto) 28.8 % (13.4-35.0); Mean Corpuscular HGB Conc 33 % (30-34); Mean Corpuscular Hemoglobin 29 pg (28-32); Mean Corpuscular Volume 87 fl (79-97); Monocytes # (Auto) 0.4 K/mm3 (0.0-0.8); Monocytes % (Auto) 11.2 % (0.0-7.3); Platelet Count 218 K/mm3 (140-440); Red Blood Count 3.96 M/mm3 (3.65-5.03); Red Cell Distribution Width 15.7 % (13.2-15.2)
[2017-12-31 21:32] LABS: Albumin 3.1 g/dL (3.9-5); Calcium 8.5 mg/dL (8.4-10.2)
[2017-12-31 21:41] LABS: INR 10.35 (0.87-1.13); Partial Thromboplastin Time 114.2 Sec. (24.2-36.6)
--- NOTE | 2017-12-31 22:45 | Emergency Department Report ---
HPI - General Chief Complaint: Recheck/Abnormal Lab/Rx Time Seen by Provider: 12/31/17 22:43 - HPI HPI: 87-year-old female presents to the emergency department with an elevated INR level. The patient is on Coumadin/warfarin secondary to a history of atrial fibrillation. Apparently She was get 7.5 mg instead of 2.5 mg. She had her INR level checked at her fiber product cutting machine operator's office and the INR level was 8 at that time. Some other blood work was obtained and they were called later this evening and told to go to the emergency department as the INR was 11. The patient and her family deny any bleeding. She also has a past medical history of CHF, dementia. Her primary care physician is Dr. Juan ramirez and her fiber product cutting machine operator is Dr. Arizmendi. ED Past Medical Hx - Past Medical History Previous Medical History?: Yes Hx Congestive Heart Failure: Yes Hx Dementia: Yes Additional medical history: Afib - Surgical History Past Surgical History?: Yes Additional Surgical History: Hip surgery, Neck surgery, Eye surgery. - Social History Smoking Status: Never Smoker Substance Use Type: None - Medications Home Medications: Home Medications Medication Instructions Recorded Confirmed Last Taken Type AtorvaSTATin [Lipitor] 10 mg PO QHS 10/27/17 10/27/17 Unknown History Furosemide [Lasix TAB] 40 mg PO QDAY 10/27/17 10/27/17 Unknown History Metoprolol [Lopressor TAB] 25 mg PO BID 10/27/17 10/27/17 Unknown History Warfarin [Coumadin] 5 mg PO QDAY 10/27/17 10/27/17 Unknown History Arformoterol Nebu [Brovana Nebu] 15 mcg IH Q12HRT ml 10/30/17 Unknown Rx Budesonide [Pulmicort Respules] 0.5 mg IH Q12HRT nebu 10/30/17 Unknown Rx Famotidine [Pepcid] 20 mg PO QDAY tablet 10/30/17 Unknown Rx Levofloxacin [Levaquin] 250 mg PO QDAY 5 Days tablet 10/30/17 Unknown Rx Metoprolol [Lopressor TAB] 25 mg PO BID tablet 10/30/17 Unknown Rx ED Review of Systems ROS: Stated complaint: ABNORMAL LABS Other details as noted in HPI Comment: All other systems reviewed and negative Constitutional: denies: chills, fever Eyes: denies: eye pain, eye discharge, vision change ENT: denies: ear pain, throat pain Respiratory: denies: cough, shortness of breath, wheezing Cardiovascular: denies: chest pain, palpitations Gastrointestinal: denies: abdominal pain, nausea, diarrhea Genitourinary: denies: urgency, dysuria, discharge Musculoskeletal: denies: back pain, joint swelling, arthralgia Skin: denies: rash, lesions Neurological: denies: headache, weakness, paresthesias Physical Exam - Physical Exam Vital Signs: Vital Signs 12/31/17 20:57 Temperature 96.7 F L Pulse Rate 96 H Respiratory 16 Rate Blood Pressure 132/85 O2 Sat by Pulse 100 Oximetry Physical Exam: GENERAL: The patient is well-developed well-nourished. HENT: Normocephalic. Atraumatic. Patient has moist mucous membranes. EYES: Extraocular motions are intact. Pupils equal reactive to light bilaterally. NECK: Supple. Trachea is midline. CHEST/LUNGS: Clear to auscultation. There is no respiratory distress noted. HEART/CARDIOVASCULAR: Irregularly irregular. Normal rate. ABDOMEN: Abdomen is soft, nontender. Patient has normal bowel sounds. There is no abdominal distention. SKIN: Skin is warm and dry. NEURO: The patient is awake, alert. The patient is cooperative. The patient has normal speech. MUSCULOSKELETAL: There is no tenderness or deformity. There is no evidence of acute injury. ED Course Vital Signs 12/31/17 20:57 Temperature 96.7 F L Pulse Rate 96 H Respiratory 16 Rate Blood Pressure 132/85 O2 Sat by Pulse 100 Oximetry - Consultations Consultation #1: 12/31/17 23:[address] Victor, Cardiology, who recommended the patient receive a dose of vitamin K and skip the next 2 doses of Coumadin, and follow-up in 2 days in their office for a repeat PT/INR. ED Medical Decision Making - Lab Data Result diagrams: 12/31/17 21:07 12/31/17 21:07 - Medical Decision Making Patient was sent in secondary to a elevated INR level found on labs. It was elevated at 10.3 here today. No signs of any bleeding or significant bruising. The patient has no physical complaints at this time. I spoke with cardiology who agrees that the patient should receive vitamin K, skip a few doses of the Coumadin, and then follow-up in the office outpatient. I still discussed with the patient and her family about fall and bleeding precautions secondary to the elevated INR level. She will return to ER with any complaints or any acute distress. Critical Care Time: No Critical care attestation.: If time is entered above; I have spent that time in minutes in the direct care of this critically ill patient, excluding procedure time. ED Disposition Clinical Impression: Supratherapeutic international normalized ratio (INR) Disposition: TO HOME OR SELFCARE Is pt being admited?: No Condition: Stable Instructions: Elevated INR (ED) Additional Instructions: Please still use precautions and make sure he did not fall and/or hit your head as you are still very prone to increased bleeding secondary to the elevated INR/ PT level. Hold your Coumadin dose for today and tomorrow, and follow-up with the fiber product cutting machine operator on Friday for a repeat PT/INR and further instructions. Return to the emergency Department with any worsening of your symptoms are with any acute distress. Referrals: LORI ARIZMENDI MD [Staff Physician] - 2-3 Days Time of Disposition: 23:19
[2017-12-31] MEDS ORDERED: VITAMIN K (ADULT ONLY) SUB-Q ONE (22:48)
[2017-12-31 23:25] VITALS: BP 118/82
== END 2017-12-31 23:25 | disposition home or self-care (01) ==
LOC: ED 20:56
DX: R79.1 Abnormal coagulation profile (principal); I50.9 Heart failure, unspecified; F03.90 Unspecified dementia, unspecified severity, without behavioral disturbance, psychotic disturbance, mood disturbance, and anxiety
CPT/HCPCS: 36415; 80053; 85025; 85610; 85730; 96372; 99283; J3430

== ENCOUNTER 2018-06-15 17:16 | Emergency (ER) | payer MEDICARE ==
[2018-06-15 18:21] LABS: Basophils % (Auto) 0.3 % (0.0-1.8); Eosinophils % (Auto) 0.9 % (0.0-4.3); Hematocrit 39.1 % (30.3-42.9); Lymphocytes % (Auto) 29.9 % (13.4-35.0); Mean Corpuscular HGB Conc 33 % (30-34); Mean Corpuscular Hemoglobin 30 pg (28-32); Mean Corpuscular Volume 91 fl (79-97); Monocytes # (Auto) 0.4 K/mm3 (0.0-0.8); Monocytes % (Auto) 10.6 % (0.0-7.3); Red Blood Count 4.27 M/mm3 (3.65-5.03); Red Cell Distribution Width 16.4 % (13.2-15.2)
[2018-06-15 18:27] LABS: Platelet Count 85 K/mm3 (140-440)
[2018-06-15 18:30] LABS: Calcium 9.5 mg/dL (8.4-10.2)
[2018-06-15 18:31] LABS: INR 1.84 (0.87-1.13)
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
[2018-06-15 18:32] LABS: Partial Thromboplastin Time 40.2 Sec. (24.2-36.6)
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
[2018-06-15 19:10] VITALS: BP 129/78
== END 2018-06-15 19:16 | disposition home or self-care (01) ==
LOC: ED 17:16
DX: S00.83XA Contusion of other part of head, initial encounter (principal); M19.90 Unspecified osteoarthritis, unspecified site; I48.91 Unspecified atrial fibrillation; Z88.5 Allergy status to narcotic agent; W01.198A Fall on same level from slipping, tripping and stumbling with subsequent striking against other object, initial encounter; Y93.89 Activity, other specified; Y92.89 Other specified places as the place of occurrence of the external cause; Y99.8 Other external cause status
CPT/HCPCS: 36415; 70450; 80048; 85025; 85610; 85730; 99284